=== PATIENT | male | born 1950 | race Caucasian/White ===

== ENCOUNTER 2017-02-27 13:23 | Observation (INO) | payer MEDICARE, BC, SELFPAY | END 2017-02-28 10:00 | disposition home or self-care (01) | PROVIDERS: Admitting Provider Internal Medicine Adolescent Medicine; Emergency Provider Emergency Medicine; Visit Provider Internal Medicine Adolescent Medicine | DX: R07.9 Chest pain, unspecified (principal); C34.2 Malignant neoplasm of middle lobe, bronchus or lung; E03.9 Hypothyroidism, unspecified; N39.0 Urinary tract infection, site not specified | CPT/HCPCS: 36415; 71020; 71275; 80053; 81001; 84436; 84443; 84479; 84484; 85025; 85378; 87086; 87275; 87276; 93005; 96374; 96375; 96376; 99285; G0378; Q9967 ==

== ENCOUNTER 2017-05-02 13:00 | Day surgery (SDC) | payer MEDICARE, BC, SELFPAY ==
[2017-04-28 14:11] VITALS: BMI 26.6
[2017-05-02] VITALS (7 sets, daily range): BP systolic 99–139; BP diastolic 60–83; PULSE 78–95; RESP 16–20; TEMP 36.6–36.7; O2SAT 92–97
--- NOTE | 2017-05-02 14:11 | HMH.ANESCL ---
[facility] Anesthesia Checklist - Patient Identification Patient Identification: Arm Band - Structural Data Admitted From: Home Planned Operative Procedure/s: ercp Consent for Planned Operative Procedure(s) Verified: Yes - Airway Assessment C-Spine Mobility Assessed: Yes TMJ Mobility Assessed: Yes Dentition: Poor Dentition - Neurological Assessment Level of Consciousness: Awake, Alert - Anesthesia Plan Anesthesia Risk discussed: Yes Anesthesia Plan: Verified ASA Class: III Anesthesia Type: MAC [facility] Anesthesia HX Medical History: Reports:: Cancer, Hyperlipidemia, Hypertension, Lung Disease (lobectomy/ medicated) Denies:: Diabetes Mellitus Type 1, Diabetes Mellitus Type 2, Internal Pacemaker, Seizures Other Surgeries: Yes: Appendectomy, Cardiac Catheterization (clear heart cath 10 years ago), Colon Resection, Colostomy, Other (gallbladder removal). No: Pacemaker Comment: lobectomy *Family Hx:: No significant family history
--- NOTE | 2017-05-02 14:20 | FL_ITS ---
[place] ERCP Ordering Physician: Richie Diaz MD Patient Age: 66 years: Male HISTORY: ] Quadrant pain elevated LFTs TECHNIQUE: ERCP Procedure performed by Dr. Diaz in Room 2. . 45 seconds fluoroscopy time. COMPARISON :No recent studies FINDINGS Single fluoroscopic spot image submitted . It demonstrates the endoscopy scope in place with the common duct cannulated. There is been injection of contrast outlined the common duct and its branches... No discrete filling defect this limited single view. No dilatation of common duct. It appears that a sphincterotomy performed from this image. IMPRESSION: Injection of common duct reveal No filling defects evident. A normal caliber. Sphincterotomy apparently performed by Dr. Diaz
--- NOTE | 2017-05-02 14:48 | HMH.PROC ---
[facility] Procedure Note Procedure Note:: ERCP procedure Report: Endoscopic retrograde cholangiopancreatography with extension of biliary sphincterotomy Endoscopist: Richie Diaz II, MD Referring Physician: Edgardo Carlson MD Date of Procedure: May 02, 2017 Equipment: Olympus 180 side viewing endoscope/duodenal scope Sedation: MAC sedation Indication: Mr. Harden is a 66-year-old gentleman who is here for repeat ERCP. The patient does have right upper abdominal pain/right sided abdominal pain that radiates into the back. He has some indigestion, bloating and nausea. He has had 2 prior ERCPs and 2007 and again in July 2011 with biliary sphincterotomy. Each time he had improvement of his right-sided abdominal pain. He is on a fentanyl patch daily. He also takes BuSpar. The patient has had prior subtotal colectomy. He also had stage IIIa adenocarcinoma of the lung and presumptive bone cancer. He was admitted as an inpatient to [facility] on February 2017 for abdominal pain. Procedure: Prior to the procedure, a history and physical exam was performed, and patient's medications and allergies were reviewed. The risks, benefits and alternatives of the sedation and procedure were discussed with the patient. All questions were answered and informed consent was obtained. The patient was brought to the fluoroscopic radiology room. Patient identification and proposed procedure were verified by the physician and the nurse. The patient was placed in a swimmer's position between left lateral decubitus and prone position and the scope was passed under direct vision. Throughout the procedure, the patient's blood pressure, pulse, and oxygen saturations were monitored continuously. The ERCP was accomplished without difficulty. The patient tolerated the procedure well. Findings: The scope was passed directly into the upper esophagus and advanced to the second portion of the duodenum. The esophagus and stomach were normal. There was some mild antritis/gastritis. There were superficial duodenal ulcers of the bulb and post bulbar duodenum. The ampulla was well visualized. The common bile duct was selectively cannulated. The cholangiogram showed a 4-5 mm common bile duct with normal filling of the intrahepatic biliary system. There were no filling defects. The cystic duct stump was normal. There was delayed drainage of bile and contrast. Extension of the biliary sphincterotomy was done with the sphincterotome. There was excellent drainage subsequently. The pancreatic duct was not cannulated intentionally. Impression: 1. 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 Superficial duodenal ulcer disease Plan: I am going to place the patient on misoprostol twice daily for healing of the duodenal ulcers especially since he is on aspirin. This should also help with bowel function. I would like for him to continue Reglan and Iberogast.
--- NOTE | 2017-05-02 14:53 | P.PCN_ITS ---
[facility] Procedure Note Procedure Note:: ERCP procedure Report: Endoscopic retrograde cholangiopancreatography with extension of biliary sphincterotomy Endoscopist: Richie Diaz II, MD Referring Physician: Edgardo Carlson MD Date of Procedure: May 02, 2017 Equipment: Olympus 180 side viewing endoscope/duodenal scope Sedation: MAC sedation Indication: Mr. Harden is a 66-year-old gentleman who is here for repeat ERCP. The patient does have right upper abdominal pain/right sided abdominal pain that radiates into the back. He has some indigestion, bloating and nausea. He has had 2 prior ERCPs and 2007 and again in July 2011 with biliary sphincterotomy. Each time he had improvement of his right-sided abdominal pain. He is on a fentanyl patch daily. He also takes BuSpar. The patient has had prior subtotal colectomy. He also had stage IIIa adenocarcinoma of the lung and presumptive bone cancer. He was [facility] as an [facility] for abdominal pain. Procedure: Prior to the procedure, a history and physical exam was performed, and patient' s medications and allergies were reviewed. The risks, benefits and alternatives of the sedation and procedure were discussed with the patient. All questions were answered and informed consent was obtained. The patient was brought to the fluoroscopic radiology room. Patient identification and proposed procedure were verified by the physician and the nurse. The patient was placed in a swimmer's position between left lateral decubitus and prone position and the scope was passed under direct vision. Throughout the procedure , the patient's blood pressure, pulse, and oxygen saturations were monitored continuously. The ERCP was accomplished without difficulty. The patient tolerated the procedure well. Findings: The scope was passed directly into the upper esophagus and advanced to the second portion of the duodenum. The esophagus and stomach were normal. There was some mild antritis/gastritis. There were superficial duodenal ulcers of the bulb and post bulbar duodenum. The ampulla was well visualized. The common bile duct was selectively cannulated. The cholangiogram showed a 4-5 mm common bile duct with normal filling of the intrahepatic biliary system. There were no filling defects. The cystic duct stump was normal. There was delayed drainage of bile and contrast. Extension of the biliary sphincterotomy was done with the sphincterotome. There was excellent drainage subsequently. The pancreatic duct was not cannulated intentionally. Impression: 1. 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 Superficial duodenal ulcer disease Plan: I am going to place the patient on misoprostol twice daily for healing of the duodenal ulcers especially since he is on aspirin. This should also help with bowel function. I would like for him to continue Reglan and Iberogast.
== END 2017-05-02 15:50 | disposition home or self-care (01) ==
LOC: OUTP 13:03
PROVIDERS: Family Provider Internal Medicine Hematology & Oncology; Visit Provider Internal Medicine Gastroenterology
DX: K26.9 Duodenal ulcer, unspecified as acute or chronic, without hemorrhage or perforation (principal)
CPT/HCPCS: 43260; 74330; Q9967

== ENCOUNTER → 2017-06-28 08:20 | Outpatient (CLI) | payer MEDICARE, BC, SELFPAY ==
[2017-06-28 08:15] VITALS: BP 140/79; PULSE 82; RESP 18; TEMP 36.6; O2SAT 99
== END | disposition home or self-care (01) ==
LOC: INF 08:20
PROVIDERS: Family Provider Internal Medicine Hematology & Oncology; Visit Provider Internal Medicine Hematology & Oncology
DX: C34.2 Malignant neoplasm of middle lobe, bronchus or lung (principal); Z45.2 Encounter for adjustment and management of vascular access device
CPT/HCPCS: 96523; J1642

== ENCOUNTER 2017-08-09 08:52 | Outpatient (CLI) | payer MEDICARE, BC, SELFPAY ==
[2017-08-09 08:55] VITALS: BP 131/79; PULSE 79; RESP 20; TEMP 36.7; O2SAT 96
[2017-08-09 09:10] VITALS: BP 131/79; PULSE 79; RESP 20; TEMP 36.7; O2SAT 96
== END 2017-08-09 09:10 | disposition home or self-care (01) ==
LOC: INF 08:53
PROVIDERS: Family Provider Internal Medicine Hematology & Oncology; Visit Provider Internal Medicine Hematology & Oncology
DX: C34.2 Malignant neoplasm of middle lobe, bronchus or lung (principal); Z45.2 Encounter for adjustment and management of vascular access device
CPT/HCPCS: 96523; J1642

== ENCOUNTER 2017-10-07 08:10 | Outpatient (CLI) | payer MEDICARE, BC, SELFPAY | END 2017-10-07 08:30 | disposition home or self-care (01) | LOC: INF 08:15 | PROVIDERS: Family Provider Internal Medicine Hematology & Oncology; Visit Provider Internal Medicine Hematology & Oncology | DX: Z45.2 Encounter for adjustment and management of vascular access device (principal) | CPT/HCPCS: 96523; J1642 ==

== ENCOUNTER 2017-12-21 08:32 | Outpatient (CLI) | payer MEDICARE, BC, SELFPAY ==
[2017-12-21 08:45] VITALS: BP 138/70; PULSE 75; RESP 20; TEMP 36.7; O2SAT 99
== END 2017-12-21 08:55 | disposition home or self-care (01) ==
LOC: INF 08:32
PROVIDERS: Family Provider Internal Medicine Hematology & Oncology; Visit Provider Internal Medicine Hematology & Oncology
DX: Z45.2 Encounter for adjustment and management of vascular access device (principal); C34.2 Malignant neoplasm of middle lobe, bronchus or lung
CPT/HCPCS: 96523; J1642

== ENCOUNTER 2018-02-01 08:37 | Outpatient (CLI) | payer MEDICARE, BC, SELFPAY | END 2018-02-01 08:54 | disposition home or self-care (01) | LOC: INF 08:37 | PROVIDERS: Visit Provider Internal Medicine Hematology & Oncology | DX: C34.2 Malignant neoplasm of middle lobe, bronchus or lung (principal); Z45.2 Encounter for adjustment and management of vascular access device | CPT/HCPCS: 96523; J1642 ==

== ENCOUNTER 2018-03-17 08:41 | Outpatient (CLI) | payer MEDICARE, BC, SELFPAY ==
[2018-03-17 08:50] VITALS: BP 130/78; PULSE 81; RESP 18; TEMP 36.6; O2SAT 97
== END 2018-03-17 09:00 | disposition home or self-care (01) ==
LOC: INF 08:41
PROVIDERS: Visit Provider Internal Medicine Hematology & Oncology
DX: Z45.2 Encounter for adjustment and management of vascular access device (principal); C34.2 Malignant neoplasm of middle lobe, bronchus or lung
CPT/HCPCS: 96523; J1642

== ENCOUNTER 2018-05-02 08:17 | Outpatient (CLI) | payer MEDICARE, BC, SELFPAY | END 2018-05-02 08:35 | disposition home or self-care (01) | LOC: INF 08:17 | PROVIDERS: Visit Provider Internal Medicine Hematology & Oncology | DX: C34.2 Malignant neoplasm of middle lobe, bronchus or lung (principal); Z45.2 Encounter for adjustment and management of vascular access device | CPT/HCPCS: 96523; J1642 ==

== ENCOUNTER 2018-06-20 08:12 | Outpatient (CLI) | payer MEDICARE, BC, SELFPAY ==
[2018-06-20 08:18] VITALS: BP 122/53; PULSE 74; RESP 20; TEMP 36.3; O2SAT 95
== END 2018-06-20 08:28 | disposition home or self-care (01) ==
LOC: INF 08:12
PROVIDERS: Visit Provider Internal Medicine Hematology & Oncology
DX: Z45.2 Encounter for adjustment and management of vascular access device (principal); C34.2 Malignant neoplasm of middle lobe, bronchus or lung
CPT/HCPCS: 96523; J1642

== ENCOUNTER 2018-08-02 08:15 | Outpatient (CLI) | payer MEDICARE, BC, SELFPAY ==
[2018-08-02 09:00] VITALS: BP 139/86; PULSE 78; RESP 18; TEMP 36.4; O2SAT 97
== END 2018-08-02 09:07 | disposition home or self-care (01) ==
LOC: INF 08:22
PROVIDERS: Visit Provider Internal Medicine Hematology & Oncology
DX: Z45.2 Encounter for adjustment and management of vascular access device (principal)
CPT/HCPCS: 96523; J1642

== ENCOUNTER 2018-09-12 08:12 | Outpatient (CLI) | payer MEDICARE, BC, SELFPAY ==
[2018-09-12 08:30] VITALS: BP 112/74; PULSE 68; RESP 20; TEMP 36.9
[2018-09-12 15:33] VITALS: BP 112/74; PULSE 68; RESP 20; TEMP 36.9; O2SAT 95
== END 2018-09-12 08:30 | disposition home or self-care (01) ==
LOC: INF 08:12
PROVIDERS: Visit Provider Internal Medicine Hematology & Oncology
DX: C34.2 Malignant neoplasm of middle lobe, bronchus or lung (principal); Z45.2 Encounter for adjustment and management of vascular access device
CPT/HCPCS: 96523; J1642

== ENCOUNTER 2018-10-24 08:08 | Outpatient (CLI) | payer MEDICARE, BC, SELFPAY ==
[2018-10-24 08:10] VITALS: BP 139/79; PULSE 74; RESP 18; TEMP 36.6; O2SAT 97
== END 2018-10-24 08:25 | disposition home or self-care (01) ==
LOC: INF 08:08
PROVIDERS: Visit Provider Internal Medicine Hematology & Oncology
DX: Z45.2 Encounter for adjustment and management of vascular access device (principal)
CPT/HCPCS: 96523; J1642

== ENCOUNTER 2019-01-08 08:22 | Outpatient (CLI) | payer MEDICARE, BC, SELFPAY ==
[2019-01-08 09:20] VITALS: BP 158/85; PULSE 100; RESP 20; TEMP 36.9; O2SAT 95
== END 2019-01-08 09:35 | disposition home or self-care (01) ==
LOC: INF 08:22
PROVIDERS: Visit Provider Internal Medicine Hematology & Oncology
DX: C34.2 Malignant neoplasm of middle lobe, bronchus or lung (principal); Z45.2 Encounter for adjustment and management of vascular access device
CPT/HCPCS: 96523; J1642

== ENCOUNTER 2019-02-19 08:24 | Outpatient (CLI) | payer MEDICARE, BC, SELFPAY ==
[2019-02-19 08:20] VITALS: BP 117/76; PULSE 73; RESP 18; TEMP 36.7; O2SAT 99
[2019-02-19 08:35] VITALS: BP 112/64; PULSE 78; RESP 18; TEMP 36.1; O2SAT 99
== END 2019-02-19 08:35 | disposition home or self-care (01) ==
LOC: INF 08:24
PROVIDERS: Visit Provider Internal Medicine Hematology & Oncology
DX: C34.2 Malignant neoplasm of middle lobe, bronchus or lung (principal); Z45.2 Encounter for adjustment and management of vascular access device
CPT/HCPCS: 96523; J1642

== ENCOUNTER 2019-04-04 08:23 | Outpatient (CLI) | payer MEDICARE, BC, SELFPAY | END 2019-04-04 08:32 | disposition home or self-care (01) | LOC: INF 08:23 | PROVIDERS: Visit Provider Internal Medicine Hematology & Oncology | DX: C34.2 Malignant neoplasm of middle lobe, bronchus or lung (principal); Z45.2 Encounter for adjustment and management of vascular access device | CPT/HCPCS: 96523; J1642 ==

== ENCOUNTER 2019-05-29 08:58 | Outpatient (CLI) | payer MEDICARE, BC, SELFPAY ==
[2019-05-29 09:15] VITALS: BP 140/83; PULSE 78; RESP 20; TEMP 36.8; O2SAT 98
== END 2019-05-29 09:25 | disposition home or self-care (01) ==
LOC: INF 08:58
PROVIDERS: Visit Provider Internal Medicine Hematology & Oncology
DX: C34.2 Malignant neoplasm of middle lobe, bronchus or lung (principal); Z45.2 Encounter for adjustment and management of vascular access device
CPT/HCPCS: 96523; J1642

== ENCOUNTER 2019-11-26 20:07 | Emergency (ER) | payer MEDICARE, BC, SELFPAY ==
[2019-11-26 20:20] VITALS: BP 158/102; PULSE 89; RESP 18; TEMP 36.8; O2SAT 98; BMI 28.1
--- NOTE | 2019-11-26 20:30 | HMH.EDEYEP ---
ED Disposition Clinical Impression: Bacterial conjunctivitis Disposition: Home, Self-Care Condition on Discharge: Good Instructions: DI for Conjunctivitis Additional Instructions: use meds and see your eye dr or dr ramirez at [facility] Prescriptions: cephALEXin [Keflex 500mg Cap] 500 mg PO TID #30 cap Transmission Status: Received by [id number] Referrals: Edgardo Carlson [Primary Care Provider] - - Critical Care Critical Care Time: No Attestation: On 11/26/19, the high probability of a clinically significant, sudden or life threatening deterioration of the following system(s) required my full and direct attention, intervention and personal management. The time I documented below is in addition to time spent performing reported procedures but includes the following listed in this critical care notation. Medical Decision Making - Medical Records Medical records reviewed: Yes: I reviewed the patient's medical records. - Vincent Inquiry Pt receiving controlled substance: No Vital Signs: 11/26/19 20:20 Temperature 98.3 F Temperature Source Oral Pulse Rate [Right Brachial] 89 Respiratory Rate 18 Blood Pressure [Right Arm] 158/102 H Blood Pressure Mean [Right Arm] 120 Blood Pressure Source [Right Arm] Automatic Cuff Blood Pressure Position [Right Arm] Sitting 02 Sat by Pulse Oximetry 98 Oxygen Delivery Method Room Air Orders (Tests/Meds): ED MEDICATIONS Generic Name Dose Route Start Last Admin Trade Name Freq PRN Reason Stop Dose Admin Benzonatate 100 mg 11/26/19 20:37 Tessalon Perles 100mg Capsule PO 12/26/19 20:36 TID PRN Cough Donepezil HCl mg 11/27/19 09:00 Aricept 10mg Tablet PO 12/27/19 08:59 DAILY OZZY Levothyroxine Sodium 112 mcg 11/27/19 09:00 Synthroid 112mcg (0.112mg) Tablet PO 12/27/19 08:59 DAILY OZZY Lisinopril 5 mg 11/27/19 09:00 Zestril 5mg Tablet PO 12/27/19 08:59 DAILY OZZY Non-Formulary Medication 40 mg 11/26/19 20:45 Simvastatin PO 12/26/19 20:44 QAM OZZY Non-Formulary Medication 10 mg 11/27/19 09:00 Escitalopram Oxalate PO 12/27/19 08:59 DAILY OZZY Discontinued Medications Generic Name Dose Route Start Last Admin Trade Name Freq PRN Reason Stop Dose Admin Cephalexin HCl 500 mg 11/26/19 20:30 11/26/19 20:32 Cephalexin 500mg Capsule PO 11/26/19 20:31 500 mg ONCE ONE Administration Protocol Gentamicin Sulfate 1 ml 11/26/19 20:37 Garamycin 0.3% Opth Shweta 5ml OP 11/26/19 20:38 ONCE ONE Eye Problem HPI - General Stated complaint: FB in L eye Time Seen by Provider: 11/26/19 20:30 Mode of Arrival: Ambulatory Source of Information: Patient, Medical Record Limitations: No Limitations Description of Symptoms (Recalled from ER Triage Doc. by RN): Patient reports his eyes have been irritated x2 days and then today after mowing his left eye became puffy, sore and had some drainage and his told him he needed to have it looked at. - History of Present Illness HPI Narrative: swollen lt lower lid with drainage - no visual loss and no eye pain MD chief complaint: other Onset (ago): day(s) Location: left eye Eye Symptoms: discharge Place: home Severity: moderate Treatments Prior to Arrival: none - Related Data Home Medications Medication Instructions Recorded Confirmed simvastatin 40 mg tablet 40 mg PO QAM 03/17/17 03/29/19 lisinopriL [Lisinopril 5mg Tablet] 5 mg PO DAILY 04/28/17 03/29/19 donepezil 10 mg tablet 10 mg PO DAILY 02/23/19 03/29/19 escitalopram oxalate 10 mg tablet 10 mg PO DAILY 02/23/19 03/29/19 levothyroxine 112 mcg tablet 112 mcg PO DAILY tab 03/29/19 03/29/19 Previous Rx's Medication Instructions Recorded Benzonatate [Tessalon Perle 100mg 100 mg PO TID PRN #30 cap 05/27/19 Cap*] cephALEXin [Keflex 500mg Cap] 500 mg PO TID #30 cap 11/26/19 Allergies Allergy/AdvReac Type Severity Reaction Status Judson
[2019-11-26 20:40] VITALS: BP 168/100; PULSE 78; RESP 17; TEMP 36.8; O2SAT 99
== END 2019-11-26 20:46 | disposition home or self-care (01) ==
PROVIDERS: Emergency Provider Emergency Medicine; PCP Internal Medicine
DX: H10.32 Unspecified acute conjunctivitis, left eye (principal); K21.9 Gastro-esophageal reflux disease without esophagitis; E78.5 Hyperlipidemia, unspecified; I10 Essential (primary) hypertension; F33.1 Major depressive disorder, recurrent, moderate; E03.9 Hypothyroidism, unspecified; F03.90 Unspecified dementia, unspecified severity, without behavioral disturbance, psychotic disturbance, mood disturbance, and anxiety; Z79.899 Other long term (current) drug therapy
CPT/HCPCS: 99281

== ENCOUNTER 2020-08-22 10:00 | Outpatient (RCR) | payer MEDICARE, BC, SELFPAY ==
--- NOTE | 2020-08-13 11:46 | HMH.SLDYSPHA ---
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 Pt will be seen # times/week 2 for # weeks 4 Diet Recommendations Normal Liquid Type Recommendations Normal/Thin SL Swallow Guidelines Standard Aspiration Prec. Dysphagia Swallow Precautions/Strategies Sitting Upright (90 deg),Turn Head Left,Liquids from Straw, Small Bites and Sips,Alternate Liquids/Solids Place Food on Right side of Mouth Additional Consults Recommended Physical Therapy Plan Anticipate reaching STG in # weeks 2 Anticipate reaching LTG in # weeks 4 Pt/Guardian verbally ack understanding Yes of dx/prognosis/goals G -code Required No STG-Other Comment/Non-Specific -Complete OMES to strengthen facial muscules 10xs per each exercise. - Educate patient/caregiver on diet modifications and compensatory strategies. Big Machine Consultant Goals Diet Regular with Liquids Thin Liquids Dysphagia:Food Presentation Evaluation Food Type Pureed,Mechanical Soft,Regular ,Liquid,Pudding Dysphagia Evaluation Summary Mr. Harden was given the following consistenies: thins via open cup and straw, pudding, pureed, mechanical soft, and regular. Mr. Hardne exhibited writhing head and neck motor movements when swallowing bolus. He was advised to turn his head to the weaker side (Left) by placing his chin near his shoulder to allow bolus to be pushed down the stronger side. He reported this did improve his swallowing.
== END 2020-08-22 10:05 | disposition home or self-care (01) ==
LOC: ST 10:00
PROVIDERS: PCP Internal Medicine; Visit Provider Internal Medicine
DX: G51.0 Bell's palsy (principal); R13.10 Dysphagia, unspecified
CPT/HCPCS: 92526; 92610

== ENCOUNTER 2021-06-26 09:24 | Emergency (ER) | payer MEDICARE, SELFPAY ==
[2021-06-26 09:25] VITALS: BP 140/94; PULSE 88; RESP 18; TEMP 36.8; O2SAT 97; BMI 28.0
--- NOTE | 2021-06-26 10:36 | HMH.EDUTC ---
[facility] [place] Disposition Clinical Impression: Sinusitis Qualifiers: Sinusitis location: unspecified location Chronicity: unspecified Qualified Code(s): J32.9 - Chronic sinusitis, unspecified Disposition: Home, Self-Care Condition on Discharge: Good Instructions: Sinusitis, DI for Sinusitis Additional Instructions: *Monitor Temp, Over the counter Motrin or Tylenol as directed/as needed Tylenol every 4 hours and Motrin every 6 hours (as long as your family doctor has told you that you can take it) for fever or pain. and straight to ER if unable to lower temp less than 101.0 after medication given *Warm salt water gargles may help to soothe the throat *Throat Lozenges *Warm fluids like tea with honey may help to soothe the throat *Sleep elevated *Humidifier/Vaporizer Take your medication as prescribed Follow up with your Family Doctor if no improvement or any worsening of symptoms Follow up IMMEDIATELY for new or worsening symptoms or no Noticeable improvement over the next 48-72 hours. 911 for difficulty breathing or swallowing Prescriptions: Amoxicillin/Potassium Clav [Amox-Clav 875-125 mg Tablet] 1 tab PO BID #14 tab Transmission Status: Pending to [id number] predniSONE [Deltasone 10mg tablet] 10 mg PO BID 5 Days #10 tab Transmission Status: Pending to [id number] Referrals: Edgardo Carlson [Primary Care Provider] - As needed Time of Disposition: 10:48 Medical Decision Making - Vincent Inquiry Pt receiving controlled substance: No Vincent was queried for this patient: No Vital Signs: 06/26/21 09:25 Temperature 98.2 F Temperature Source Oral Pulse Rate [Left Radial] 88 Respiratory Rate 18 Blood Pressure [Right Arm] 140/94 H Blood Pressure Mean [Right Arm] 109 Blood Pressure Source [Right Arm] Automatic Cuff Blood Pressure Position [Right Arm] Sitting 02 Sat by Pulse Oximetry 97 Oxygen Delivery Method Room Air Medical Decision Narrative: Patient state that he has taken augmentin and prednisone in the past wihtout complications or reactions [facility] HPI - General Stated complaint: sore throat, congestion, h/a, bilateral ear ache Time Seen by Provider: 06/26/21 10:36 Mode of Arrival: Ambulatory Source of Information: Patient Limitations: No Limitations Description of Symptoms (Recalled from Triage Doc. by RN): c/o ear hurting, head and sinuses pressure that started 2 days ago HEENT Symptoms (Recalled from RN notes): Yes Resp Symptoms (Recalled from RN notes): No Skin Symptoms (Recalled from RN notes): No MS Symptoms (Recalled from RN notes): No Functional Status (Recalled from RN notes): na - History of Present Illness Provider Complaint: Patient states that he has been having sinus pain and pressure for about a week or so State that for the last couple of days it has got worse and he is having pain and pressure in his ears States that today he was feeling worse and worried that it was going to move into his chest - Related Data Home Medications Medication Instructions Recorded Confirmed simvastatin 40 mg tablet 40 mg PO QAM 03/17/17 03/29/19 lisinopriL [Lisinopril 5mg Tablet] 5 mg PO DAILY 04/28/17 03/29/19 donepezil 10 mg tablet 10 mg PO DAILY 02/23/19 03/29/19 escitalopram oxalate 10 mg tablet 10 mg PO DAILY 02/23/19 03/29/19 levothyroxine 112 mcg tablet 112 mcg PO DAILY tab 03/29/19 03/29/19 Previous Rx's Medication Instructions Recorded Benzonatate [Tessalon Perle 100mg 100 mg PO TID PRN #30 cap 05/27/19 Cap*] cephALEXin [Keflex 500mg Cap] 500 mg PO TID #30 cap 11/26/19 Amoxicillin/Potassium Clav 1 tab PO BID #14 tab 06/26/21 [Amox-Clav 875-125 mg Tablet] predniSONE [Deltasone 10mg tablet] 10 mg PO BID 5 Days #10 tab 06/26/21 Allergies Allergy/AdvReac Type Severity Reaction Status Date / Time No Known Allergies Allergy Verified 03/29/19 13:33 - Worker's Comp Is this a Worker's Comp case?: No [facility] History - Hepatitis A Screen Drug use h
[2021-06-26 11:02] VITALS: BP 140/94; PULSE 88; RESP 20; TEMP 36.8; O2SAT 97
== END 2021-06-26 11:03 | disposition home or self-care (01) ==
PROVIDERS: Emergency Provider Nurse Practitioner; PCP Internal Medicine
DX: J32.9 Chronic sinusitis, unspecified (principal); J02.9 Acute pharyngitis, unspecified; K21.9 Gastro-esophageal reflux disease without esophagitis; E78.5 Hyperlipidemia, unspecified; I10 Essential (primary) hypertension; E03.9 Hypothyroidism, unspecified; F33.1 Major depressive disorder, recurrent, moderate; Z79.899 Other long term (current) drug therapy
CPT/HCPCS: 99212; G0463

== ENCOUNTER 2021-09-08 10:51 | Emergency (ER) | payer MEDICARE, SELFPAY ==
[2021-09-08 11:05] VITALS: BP 187/82; PULSE 102; RESP 24; TEMP 36.6; O2SAT 98; BMI 27.2
--- NOTE | 2021-09-08 11:24 | HMH.EDUTC ---
[facility] [place] Clinical Impression: Dizziness, Vertigo, benign positional Disposition: Home, Self-Care Condition on Discharge: Fair Instructions: Vertigo Additional Instructions: Follow-up with your primary care doctor if you do not improve in the next few days. Return to the emergency department if you feel worse in any way. Prescriptions: Meclizine HCl [Meclizine 25mg Tab] 25 mg PO TID PRN #21 tab PRN Reason: Dizziness Transmission Status: Received by [facility] #[id number] Referrals: Tani Hernandez MD [Primary Care Provider] - Medical Decision Making - Vincent Inquiry Pt receiving controlled substance: No Vincent was queried for this patient: No Vital Signs: 09/08/21 11:05 09/08/21 11:25 09/08/21 13:06 Temperature 97.9 F 98.4 F Temperature Source Oral Oral Pulse Rate Pulse Rate [Left Brachial] 102 H 82 74 Respiratory Rate 24 18 16 Blood Pressure Blood Pressure [Left Arm] 187/82 H 143/91 H 120/71 Blood Pressure Mean [Left Arm] 117 108 87 Blood Pressure Source Blood Pressure Source [Left Arm] Automatic Cuff Automatic Cuff Blood Pressure Position Blood Pressure Position [Left Arm] Sitting Sitting 02 Sat by Pulse Oximetry 98 99 98 Oxygen Delivery Method Room Air Room Air 09/08/21 13:10 Temperature 98.2 F Temperature Source Oral Pulse Rate 71 Pulse Rate [Left Brachial] Respiratory Rate 16 Blood Pressure 120/71 Blood Pressure [Left Arm] Blood Pressure Mean [Left Arm] Blood Pressure Source Automatic Cuff Blood Pressure Source [Left Arm] Blood Pressure Position Sitting Blood Pressure Position [Left Arm] 02 Sat by Pulse Oximetry Oxygen Delivery Method Room Air Orders (Tests/Meds): ED MEDICATIONS Discontinued Medications Generic Name Dose Route Start Last Admin Trade Name Freq PRN Reason Stop Dose Admin Meclizine HCl 25 mg 09/08/21 11:35 09/08/21 11:59 Meclizine 25mg Tablet PO 09/08/21 11:36 25 mg ONCE ONE Administration Medical Decision Narrative: Patient reports history of 3 cancers Dizziness, blurred vision and headache for 2 weeks that has continued to get worse and patient was staggering and almost fell in room feeling like everything is spinning and blood pressure elevated in UTC and patient denies HTN due to symptoms and blurred vision recommended transfer to the ED for further work up and evaluation and patient agreed Called ED spoke with Millie and patient was moved to room 7 via wheelchair [facility] [place] HPI - General Stated complaint: dizziness Time Seen by Provider: 09/08/21 11:10 Mode of Arrival: Ambulatory Source of Information: Patient Limitations: No Limitations Description of Symptoms (Recalled from Triage Doc. by RN): PATIENT C/O SOA, DIZZINESS, HEADACHE, BLURRED VISION, AND CHEST TIGHTNESS WITH BREATHING X 2 WEEKS HEENT Symptoms (Recalled from RN notes): Yes Resp Symptoms (Recalled from RN notes): Yes Skin Symptoms (Recalled from RN notes): No MS Symptoms (Recalled from RN notes): No Functional Status (Recalled from RN notes): WNL - History of Present Illness Provider Complaint: Patient states that he started about 2 weeks ago with headache, dizziness and blurred vision State that it has continued to get worse despite him taking several over the counter medications, States that he has had a few episodes of his chest feeling tight and feeling SOA with breathing States that his headache is a little better today but still feels like everything is spinning and having blurred vision. State that his vision was so blurry he was unable to fill out papers in the [facility] - Related Data Home Medications Medication Instructions Recorded Confirmed simvastatin 40 mg tablet 40 mg PO QAM 03/17/17 03/29/19 lisinopriL [Lisinopril 5mg Tablet] 5 mg PO DAILY 04/28/17 03/29/19 donepezil 10 mg tablet 10 mg PO DAILY 02/23/19 03/29/19 escitalopram oxalate 10 mg tablet 10 mg PO DAILY 02/23/19 03/29/19 levothyroxine 112 mcg tablet 112 mcg PO DAILY tab
[2021-09-08 11:25] VITALS: BP 143/91; PULSE 82; RESP 18; TEMP 36.9; O2SAT 99; BMI 28.0
--- NOTE | 2021-09-08 11:25 | PC.NURSE ---
PATIENT SENT TO ER PER Ty GONZALEZ APRN FOR FURTHER EVALUATION. REPORT GIVEN TO Chuy HARVEY RN BY Ty GONZALEZ APRN
--- NOTE | 2021-09-08 11:31 | HMH.EDDIZZ ---
ED Disposition Clinical Impression: Dizziness Vertigo, benign positional Qualifiers: Laterality: unspecified laterality Qualified Code(s): H81.10 - Benign paroxysmal vertigo, unspecified ear Disposition: Home, Self-Care Condition on Discharge: Fair Instructions: Vertigo Additional Instructions: Follow-up with your primary care doctor if you do not improve in the next few days. Return to the emergency department if you feel worse in any way. Prescriptions: Meclizine HCl [Meclizine 25mg Tab] 25 mg PO TID PRN #21 tab PRN Reason: Dizziness Transmission Status: Pending to [id number] Referrals: Tani Hernandez MD [Primary Care Provider] - - Critical Care Critical Care Time: No Attestation: On 09/08/21, the high probability of a clinically significant, sudden or life threatening deterioration of the following system(s) required my full and direct attention, intervention and personal management. The time I documented below is in addition to time spent performing reported procedures but includes the following listed in this critical care notation. Medical Decision Making - Vincent Inquiry Pt receiving controlled substance: No Vital Signs: 09/08/21 11:05 09/08/21 11:25 Temperature 97.9 F 98.4 F Temperature Source Oral Oral Pulse Rate [Left Brachial] 102 H 82 Respiratory Rate 24 18 Blood Pressure [Left Arm] 187/82 H 143/91 H Blood Pressure Mean [Left Arm] 117 108 Blood Pressure Source [Left Arm] Automatic Cuff Blood Pressure Position [Left Arm] Sitting 02 Sat by Pulse Oximetry 98 99 Oxygen Delivery Method Room Air Orders (Tests/Meds): ED MEDICATIONS Discontinued Medications Generic Name Dose Route Start Last Admin Trade Name Prateekq PRN Reason Stop Dose Admin Meclizine HCl 25 mg 09/08/21 11:35 09/08/21 11:59 Meclizine 25mg Tablet PO 09/08/21 11:36 25 mg ONCE ONE Administration - CT Data CT Scan: Head Time Received: 12:[address] Reviewed: Yes: I have reviewed the patient's CT results Preliminary Findings: Normal/NAD Medical Decision Narrative: The patient presents to the emergency department complaining of symptoms consistent with benign positional vertigo. However, the patient has had numerous different malignancies in the past. Therefore a CT of the head was performed. No acute abnormalities were seen. Meanwhile the patient was given meclizine in the emergency department which significantly improved his symptoms. I feel that the patient is stable enough to be discharged home on meclizine. The patient's neurologic exam was normal in the emergency department. Dizzy HPI - General Stated Complaint: dizziness Time Seen by Provider: 09/08/21 11:32 Mode of Arrival: Ambulatory Source of Information: Patient Limitations: No Limitations Description of Symptoms (Recalled from ER Triage Doc. by RN): PATIENT C/O SOA, DIZZINESS, HEADACHE, BLURRED VISION, AND CHEST TIGHTNESS WITH BREATHING X 2 WEEKS - History of Present Illness HPI Narrative: The patient presents to the urgent treatment care center complaining of a 2-week history of vertigo. He states that it is worse when he moves or changes position. He has a long history of multiple cancers. His last cancer treatment was about 4 years ago. He is not currently on active chemotherapy. He denies headache. But he complains of some warm feeling in his head and when he gets dizzy. - Related Data Home Medications Medication Instructions Recorded Confirmed simvastatin 40 mg tablet 40 mg PO QAM 03/17/17 03/29/19 lisinopriL [Lisinopril 5mg Tablet] 5 mg PO DAILY 04/28/17 03/29/19 donepezil 10 mg tablet 10 mg PO DAILY 02/23/19 03/29/19 escitalopram oxalate 10 mg tablet 10 mg PO DAILY 02/23/19 03/29/19 levothyroxine 112 mcg tablet 112 mcg PO DAILY tab 03/29/19 03/29/19 Previous Rx's Medication Instructions Recorded Benzonatate [Tessalon Perle 100mg 100 mg PO TID PRN #30 cap 05/27/19 Cap*] cephALEXin [Keflex 5
--- NOTE | 2021-09-08 11:34 | CT_ITS ---
FINAL REPORT CLINICAL HISTORY: Vertigo, pt states that he has been dizzy for the last 2 weeks. FINDINGS: Axial images of the head were obtained without contrast. Coronal reformatted images were also obtained.This study was performed with techniques to keep radiation doses as low as reasonably achievable (ALARA). Individualized dose reduction techniques using automated exposure control or adjustment of mA and/or kV according to the patient's size were employed. There is no evidence of intracranial hemorrhage or mass. The ventricular size is within normal limits. There is no evidence of shift of the midline structures. No abnormal extra axial fluid collection is identified. No skull abnormality is seen on the bone window images. IMPRESSION: No acute intracranial abnormality. Reviewed, Interpreted and Dictated by Nikolas Kumar III, MD Transcribed by Seth Farris Authenticated and [facility]
--- NOTE | 2021-09-08 12:56 | PC.NURSE ---
Rounded on pt at this time. Updated on plan of care. No new needs.
[2021-09-08 13:06] VITALS: BP 120/71; PULSE 74; RESP 16; O2SAT 98
[2021-09-08 13:10] VITALS: BP 120/71; PULSE 71; RESP 16; TEMP 36.8; O2SAT 98
== END 2021-09-08 13:11 | disposition home or self-care (01) ==
LOC: UTC 10:56 → ER 11:28
PROVIDERS: Emergency Provider Nurse Practitioner; PCP Internal Medicine Adolescent Medicine
DX: H81.10 Benign paroxysmal vertigo, unspecified ear (principal); Z85.038 Personal history of other malignant neoplasm of large intestine; Z85.118 Personal history of other malignant neoplasm of bronchus and lung; Z85.830 Personal history of malignant neoplasm of bone; F03.90 Unspecified dementia, unspecified severity, without behavioral disturbance, psychotic disturbance, mood disturbance, and anxiety; F32.A Depression, unspecified; K21.9 Gastro-esophageal reflux disease without esophagitis; E78.5 Hyperlipidemia, unspecified; I10 Essential (primary) hypertension; J98.4 Other disorders of lung; E03.9 Hypothyroidism, unspecified; Z90.49 Acquired absence of other specified parts of digestive tract
CPT/HCPCS: 70450; 99284

== ENCOUNTER 2022-02-09 16:29 | Emergency (ER) | payer MEDICARE, SELFPAY ==
[2022-02-09 17:55] VITALS: BP 151/85; PULSE 99; RESP 22; TEMP 36.9; O2SAT 97; BMI 26.6
--- NOTE | 2022-02-09 18:40 | EXP.UTC ---
Discharge Plan Disposition Patient Disposition: Home, Self-Care Condition: Good Prescriptions Prescriptions: New valacyclovir 1 gram tablet 1,000 mg PO Q8H 7 Days Qty: 21 0RF No Action donepezil 10 mg tablet 10 mg PO DAILY Label Comments: TAKE 1 TABLET BY MOUTH ONCE DAILY escitalopram oxalate 10 mg tablet 10 mg PO DAILY Label Comments: TAKE 1 TABLET BY MOUTH ONCE DAILY levothyroxine 112 mcg tablet 112 mcg PO DAILY Label Comments: TAKE 1 TABLET BY MOUTH ONCE DAILY simvastatin 40 mg tablet 40 mg PO QAM benzonatate 100 MG capsule 100 mg PO TID PRN (Reason: Cough) Qty: 30 0RF cephalexin 500 MG capsule 500 mg PO TID Qty: 30 0RF meclizine 25 MG tablet,chewable 25 mg PO TID PRN (Reason: Dizziness) Qty: 21 0RF lisinopril 5 MG tablet 5 mg PO DAILY prednisone 10 MG tablet 10 mg PO BID 5 Days Qty: 10 0RF amoxicillin-pot clavulanate 1 EACH tablet 1 tab PO BID Qty: 14 0RF Referrals Follow up/Referrals: Tani Hernandez MD [Primary Care Provider] - See instructions Activity Restrictions/Add. Instructions Additional Instructions/Restrictions: Take your medicines exactly as prescribed.. Antiviral medicine helps you get better faster and may help prevent later problems. Try not to scratch or pick at the blisters. They will crust over and fall off on their own if you leave them alone. Put cool, wet cloths on the area to relieve pain and itching. You can also use calamine lotion. Try not to use so much lotion that it cakes and is hard to get off. Take an [id number] pain medicine, such as acetaminophen (Tylenol), ibuprofen (Advil, Motrin), or naproxen (Aleve). Read and follow all instructions on the label. Avoid close contact with people until the blisters have healed. It is very important for you to avoid contact with anyone who has never had chickenpox or the chickenpox vaccine. Young babies and anyone who is or has a hard time fighting infection (such as someone with HIV, diabetes, or cancer) is especially at risk. FOllow up with your Family Doctor if no improvement or any worsening of symptoms Clinical Impressions Clinical Impression: Shingles Instructions Patient Instructions: Shingles, DI for Shingles, Valacyclovir Discharge ED Provider: Shonda Glover [facility] [place] General Stated complaint: possible shingles Mode of Arrival: Ambulatory Source of Information: Patient Limitations: No Limitations Time Seen by Provider: 02/09/22 18:41 Description of Symptoms (Recalled from Triage Doc. by RN): PATIENT C/O BURNING RASH TO LEFT SIDE OF CHEST X 1 WEEK HEENT Symptoms (Recalled from RN notes): No Resp Symptoms (Recalled from RN notes): No Skin Symptoms (Recalled from RN notes): Yes MS Symptoms (Recalled from RN notes): No Functional Status (Recalled from RN notes): WNL History of Present Illness Provider Complaint: Patient states that he had burning like sensation in his left shoulder blade area for about 3 days then he broke out in rash on his left side States that he thinks he has shingles States that it castillo and tender when he touches it States that feels like it did with shingles Related Data Home Medications Medication Instructions Recorded Confirmed simvastatin 40 mg tablet 40 mg PO QAM Cholesterol 03/17/17 03/29/19 lisinopril 5 mg tablet 5 mg PO DAILY blood pressure 04/28/17 03/29/19 donepezil 10 mg tablet 10 mg PO DAILY bp 02/23/19 03/29/19 escitalopram oxalate 10 mg tablet 10 mg PO DAILY bp 02/23/19 03/29/19 levothyroxine 112 mcg tablet 112 mcg PO DAILY thyroind 03/29/19 03/29/19 Previous Rx's Medication Instructions Recorded benzonatate 100 mg capsule 100 mg PO TID PRN Cough #30 caps 05/27/19 cephalexin 500 mg capsule 500 mg PO TID #30 caps 11/26/19 amoxicillin 875 mg-potassium 1 tab PO BID #14 tabs 06/26/21 clavulanate 125 mg tablet prednisone 10 mg tablet 10 mg PO BID 5 days #10 tabs 06/26/21 abel
[2022-02-09 18:47] VITALS: BP 151/85; PULSE 99; RESP 22; TEMP 36.9; O2SAT 97
== END 2022-02-09 18:55 | disposition home or self-care (01) ==
PROVIDERS: Emergency Provider Nurse Practitioner; PCP Internal Medicine Adolescent Medicine
DX: B02.9 Zoster without complications (principal); I10 Essential (primary) hypertension; Z79.52 Long term (current) use of systemic steroids; Z79.899 Other long term (current) drug therapy; R42 Dizziness and giddiness
CPT/HCPCS: 99213; G0463

== ENCOUNTER 2023-10-31 14:54 | Emergency (ER) | payer MEDICARE, SELFPAY ==
[2023-10-31 14:55] VITALS: BP 135/78; PULSE 80; RESP 18; TEMP 36.7; O2SAT 98; BMI 26.6
--- NOTE | 2023-10-31 14:59 | HMH.EDGENADL ---
Discharge Plan Disposition Patient Disposition: Home, Self-Care Condition: Good Prescriptions Prescriptions: New amoxicillin-pot clavulanate 875-125 mg tablet 1 tab PO BID Qty: 20 0RF No Action donepezil 10 mg tablet 10 mg PO DAILY Patient Comments: TAKE 1 TABLET BY MOUTH ONCE DAILY escitalopram oxalate 10 mg tablet 10 mg PO DAILY Patient Comments: TAKE 1 TABLET BY MOUTH ONCE DAILY levothyroxine 112 mcg tablet 112 mcg PO DAILY Patient Comments: TAKE 1 TABLET BY MOUTH ONCE DAILY simvastatin 40 mg tablet 40 mg PO QAM benzonatate 100 MG capsule 100 mg PO TID PRN (Reason: Cough) Qty: 30 0RF cephalexin 500 MG capsule 500 mg PO TID Qty: 30 0RF meclizine 25 MG tablet,chewable 25 mg PO TID PRN (Reason: Dizziness) Qty: 21 0RF valacyclovir 1 gram tablet 1,000 mg PO Q8H 7 Days Qty: 21 0RF lisinopril 5 MG tablet 5 mg PO DAILY prednisone 10 MG tablet 10 mg PO BID 5 Days Qty: 10 0RF amoxicillin-pot clavulanate 1 EACH tablet 1 tab PO BID Qty: 14 0RF Referrals Follow up/Referrals: Edgardo Carlson [Primary Care Provider] - See instructions Activity Restrictions/Add. Instructions Additional Instructions/Restrictions: Keep wound clean dry and covered with a nonocclusive dressing. You may wash with soap and water. Your sutures need to come out in 10 days and you may return to the [facility] PCP or ER at your leisure. Return for any increasing redness swelling pain drainage. Clinical Impressions Clinical Impression: Dog bite Instructions Patient Instructions: DI for Laceration Repair, DI for Dog Bite Print Language Print Language: Bolivian Discharge ED Provider: Hayden Crouch General Adult HPI General Stated complaint: bit by dog R wrist Time Seen by Provider: 10/31/23 14:59 History of Present Illness HPI narrative: Patient presents for evaluation of a dog bite to his right hand. Patient was bit by his son-in-law's mother's dog. He suffered a small skin tear/laceration to the dorsum of his right wrist. The dog is fully vaccinated and is up-to-date on all of his shots. Related Data Home Medications ?Medication ?Instructions ?Recorded ?Confirmed simvastatin 40 mg tablet 40 mg PO QAM Cholesterol 03/17/17 03/29/19 lisinopril 5 mg tablet 5 mg PO DAILY blood pressure 04/28/17 03/29/19 donepezil 10 mg tablet 10 mg PO DAILY bp 02/23/19 03/29/19 escitalopram oxalate 10 mg tablet 10 mg PO DAILY bp 02/23/19 03/29/19 levothyroxine 112 mcg tablet 112 mcg PO DAILY thyroind 03/29/19 03/29/19 Previous Rx's ?Medication ?Instructions ?Recorded benzonatate 100 mg capsule 100 mg PO TID PRN Cough #30 caps 05/27/19 cephalexin 500 mg capsule 500 mg PO TID #30 caps 11/26/19 amoxicillin 875 mg-potassium 1 tab PO BID #14 tabs 06/26/21 clavulanate 125 mg tablet prednisone 10 mg tablet 10 mg PO BID 5 days #10 tabs 06/26/21 meclizine 25 mg chewable tablet 25 mg PO TID PRN Dizziness #21 tabs 09/08/21 valacyclovir 1 gram tablet 1,000 mg PO Q8H 7 days #21 tabs 02/09/22 amoxicillin 875 mg-potassium 1 tab PO BID #20 tabs 10/31/23 clavulanate 125 mg tablet Allergies Allergy/AdvReac Type Severity Reaction Status Date / Time No Known Allergies Allergy Verified 03/29/19 13:33 [facility] Disclaimer: The information contained in this section may have been updated after the patient was seen, as this information can be updated by other users. Medical History (Updated 10/31/23 @ 15:37 by DEON Rubio) Cancer Hypertension Social History (Updated 02/09/22 @ 18:11 by Danyelle Brown RN) Smoking Status: Never smoker second hand exposure: No alcohol intake: never current occupational status: retired Travel in the last 8 weeks: None household members: spouse housing: house current occupational exposures/hazards: No ROS Obtained: Yes Systems reviewed as appropriate & no additional complaints except as docum
--- NOTE | 2023-10-31 15:12 | PC.NURSE ---
rounded on patient, no needs at this time
[2023-10-31 15:55] VITALS: BP 135/84; PULSE 82; RESP 16; TEMP 36.7; O2SAT 98
== END 2023-10-31 15:56 | disposition home or self-care (01) ==
PROVIDERS: Emergency Provider Emergency Medicine; PCP Internal Medicine
DX: S61.551A Open bite of right wrist, initial encounter (principal); W54.0XXA Bitten by dog, initial encounter; Z23 Encounter for immunization
CPT/HCPCS: 12002; 90471; 90715; 99283

== ENCOUNTER 2024-04-12 14:11 | Observation (INO) | payer MEDICARE, SELFPAY ==
[2024-04-12 14:12] VITALS: BP 155/104; PULSE 121; RESP 18; TEMP 36.6; O2SAT 98; BMI 27.3
--- NOTE | 2024-04-12 14:14 | ECG_ITS ---
APPROVED REPORT Exam: Resting ECG HR:114 bpm ECG Measurements Heart Rate 114 AXES NE 193 P 68 QRSd 73 QRS 70 QT 348 T 57 QTc 415 Conclusion SINUS TACHYCARDIA NONSPECIFIC ST & T-WAVE ABNORMALITY ABNORMAL RHYTHM ECG UNCONFIRMED REPORT Electronically signed by : VONNIE SANDOVAL, 04/13/2024 06:51:46
[2024-04-12 14:18] VITALS: BP 150/102; PULSE 111; RESP 15; O2SAT 99
--- NOTE | 2024-04-12 14:23 | PC.NURSE ---
wants stroke protocol emergent. Radiology aware
--- NOTE | 2024-04-12 14:25 | CT_ITS ---
FINAL REPORT TECHNIQUE: NASCET technique utilized for stenosis evaluation. Coronal and sagittal images were obtained and reviewed. This study was performed with techniques to keep radiation doses as low as reasonably achievable, (ALARA). Individualized dose reduction techniques using automated exposure control or adjustment of mA and/or kV according to the patient's size were employed. CLINICAL HISTORY: possible stroke COMPARISON: None FINDINGS: RIGHT CAROTID: There is moderate calcification of the proximal right internal carotid artery. On the axial images, stenosis measures about 50%. LEFT CAROTID: No significant stenosis seen of the cervical common or internal carotid artery. VERTEBRALS: The vertebrals are patent. The left vertebral artery is dominant. No significant stenosis is present. IMPRESSION: No significant arterial abnormality. Reviewed, Interpreted and Dictated by Dimitri Tomas MD Transcribed by Willa Castro Authenticated and [facility]
--- NOTE | 2024-04-12 14:25 | CT_ITS ---
FINAL REPORT TECHNIQUE: Axial CT images were performed through the head. Coronal reformatted images were submitted. This study was performed with techniques to keep radiation doses as low as reasonably achievable (ALARA). Individualized dose reduction techniques using automated exposure control or adjustment of mA and/or kV according to the patient's size were employed. CLINICAL HISTORY: stroke protocol COMPARISON: 09/08/2021 FINDINGS: The ventricles are normal in size for patient's age. There is mild atrophy. There is no evidence of hemorrhage. There is no mass or edema identified. There is no abnormal extra-axial fluid seen. The paranasal sinuses are well aerated. IMPRESSION: No acute intracranial process. Reviewed, Interpreted and Dictated by Dimitri Tomas MD Transcribed by Willa Castro Authenticated and [facility]
--- NOTE | 2024-04-12 14:25 | CT_ITS ---
FINAL REPORT TECHNIQUE: thin section axial CT with and without IV contrast supplemented with multiplanar 3-D reconstruction of the head. This study was performed with techniques to keep radiation doses as low as reasonably achievable, (ALARA)individualized dose reduction techniques using automated exposure control or adjustment of mA and/or kV according to the patient's size were employed. CLINICAL HISTORY: possible stroke COMPARISON: None FINDINGS: CTA: The cranial circulation is unremarkable. There is no significant stenosis, aneurysm or occlusion. IMPRESSION: No acute process. Reviewed, Interpreted and Dictated by Dimitri Tomas MD Transcribed by Willa Castro Authenticated and [facility]
--- NOTE | 2024-04-12 14:25 | CT_ITS ---
FINAL REPORT TECHNIQUE: The patient was injected with IV contrast. Axial images were obtained through the chest in a PE protocol. 3-D reconstruction images were also performed. Individualized dose reduction techniques using automated exposure control or adjustment of the MA and/or KV according to patient's size were employed. CLINICAL HISTORY: cp, tachy FINDINGS: Mediastinal vasculature is adequately opacified. No pulmonary artery filling defects are identified to suggest PE. There is no aortic dissection. There is no axillary adenopathy. There is no hilar or mediastinal adenopathy. The heart size is normal. There is no pericardial or pleural effusion. Limited images of the upper abdomen are unremarkable. There is linear scarring in both lungs. There is an ill-defined nodular area in the periphery of the right upper lobe measuring 8 mm. Finding is well-seen on image 44 of series 9. IMPRESSION: No pulmonary embolus or dissection. Ill-defined nodular area in the right upper lobe. Recommend follow-up in 6 months as per Indu criteria Reviewed, Interpreted and Dictated by Dimitri Tomas MD Transcribed by Merle Ramírez Authenticated and [facility]
[2024-04-12] MEDS: SODIUM CHLORIDE 0.9% 10ML SYR (RAD ONLY) 10 ML IV ×2 (14:31→14:39)
[2024-04-12] MEDS: IOPAMIDOL-370 (76%);100ML BOTTLE 80 ML IV (14:31)
[2024-04-12] MEDS: 0.9 % SODIUM CHLORIDE 50 ML VIAL IV (14:31)
[2024-04-12 14:34] LABS: Basophils % 0.4 % (0.1-2.0); Eosinophils % 0.4 % (0.1-12.0); Lymphocytes % 36.6 % (10-50); Mean Corpuscular HGB Conc 34.1 g/dL (31.8-35.4); Mean Corpuscular Hemoglobin 31.2 pg (27.0-31.2); Mean Corpuscular Volume 91.3 fl (80-94); Mean Platelet Volume 9.8 fl (7.4-10.4); Monocytes # 0.6 K/mm3 (0.1-1.0); Monocytes % 7.2 % (1.7-9.3); Neutrophils # 4.5 K/mm3 (1.8-7.8); Neutrophils % 55.2 % (37.0-80.0); Platelet Count 175 K/mm3 (142-424); Red Blood Count 4.49 M/mm3 (4.60-6.20); Red Cell Distribution Width 12.3 % (11.5-17.5); White Blood Count 8.1 K/mm3 (4.8-10.8)
[2024-04-12 14:38] LABS: Albumin Level 4.8 g/dl (3.5-5.0); Chloride 104 mmol/L (98-107); Potassium 3.8 mmoL/L (3.5-5.1); Sodium 137 mmol/L (136-145)
[2024-04-12] MEDS: IOPAMIDOL-370 (76%);100ML BOTTLE 70 ML IV (14:39)
[2024-04-12 14:41] LABS: Alanine Aminotransferase 33 U/L (12-78); Alkaline Phosphatase 111 U/L (38-126); Anion Gap 13.8 mEq/L (5-15); Aspartate Amino Transferase 45 U/L (17-59); Bilirubin,Total 0.4 mg/dl (0.2-1.3); Blood Urea Nitrogen 23 mg/dl (9-20); Calcium 9.4 mg/dl (8.4-10.2); Carbon Dioxide 23 mmol/L (22.0-30.0); Cholesterol 214 mg/dl (140-200); Creatinine Clearance Estimated 77 mL/min (50-200); Estimated Glomerular Filt Rate 94 ml/min (>60); GFR (African American) 114 ML/MIN (>60); Globulin 2.4 g/dL (1.3-3.2); Glucose 151 mg/dl (74-100); Total Protein,Serum 7.2 g/dl (6.3-8.2); Triglycerides 373 mg/dl (30-150); VLDL Cholesterol 75 mg/dL (0-40)
[2024-04-12] MEDS: ONDANSETRON 4MG/2ML VIAL 4 MG IV (14:41)
[2024-04-12] MEDS: ACETAMINOPHEN 500MG TAB 1000 MG PO (14:41)
--- NOTE | 2024-04-12 14:41 | PC.NURSE ---
PT ARRIVED BACK TO ROOM FROM CT
[2024-04-12 14:42] LABS: Chol/HDL Ratio 2.5 (1-3.5); HDL Cholesterol 84 mg/dl (40-60)
[2024-04-12] MEDS: LACTATED RINGERS 1000ML 1,000 ML 999 ML IV (14:42)
[2024-04-12 14:44] LABS: Activated Partial Thrombo Time 31.5 seconds (22.5-28.5); INR 0.94 (0.9-1.1); Prothrombin Time 10.4 seconds (9.2-12.1)
[2024-04-12 14:45] LABS: Ethyl Alcohol < 10 mg/dl (0-10)
[2024-04-12 14:52] LABS: Direct LDL Cholesterol 63.49 mg/dL (100-129)
[2024-04-12 14:52] LABS: Coronavirus 19, PCR Not Detected (NotDetected); Influenza A, PCR Not Detected (NotDetected); Influenza B, PCR Not Detected (NotDetected)
--- NOTE | 2024-04-12 14:55 | HMH.EDGENADL ---
Discharge Plan Disposition Patient Disposition: Admitted Condition: Fair Prescriptions Prescriptions: No Action donepezil 10 mg tablet 10 mg PO DAILY Patient Comments: TAKE 1 TABLET BY MOUTH ONCE DAILY escitalopram oxalate 10 mg tablet 10 mg PO DAILY Patient Comments: TAKE 1 TABLET BY MOUTH ONCE DAILY levothyroxine 112 mcg tablet 112 mcg PO DAILY Patient Comments: TAKE 1 TABLET BY MOUTH ONCE DAILY simvastatin 40 mg tablet 40 mg PO QAM lisinopril 5 MG tablet 5 mg PO DAILY prednisone 10 MG tablet 10 mg PO BID 5 Days Qty: 10 0RF Referrals Follow up/Referrals: Gianluca Carlson MD [Primary Care Provider] - See instructions Clinical Impressions Clinical Impression: TIA (transient ischemic attack) Print Language Print Language: Croatian Discharge ED Provider: Darian Claudio Adult HPI General Chief complaint: Neuro Symptoms/Deficit Stated complaint: STROKE SYMPTOMS Time Seen by Provider: 04/12/24 14:25 Mode of Arrival: Ambulatory Source of Information: Patient Limitations: No Limitations Description of Symptoms (Recalled from ER Triage Doc. by RN): Patient reports that he has been feeling weak for a couple of days. Complaint of numbness all over and a headache. Reports that at 6am he began to have double vision. History of Present Illness HPI narrative: Patient is a 73-year-old male with a complex medical history including colon cancer s/p resection, stroke in the past with no residual deficits, COPD not on any oxygen. Patient presents today for diplopia, intermittent numbness and weakness. He reports that over the last 3 days, he has had intermittent left-sided facial numbness and right leg weakness, but he has not had any falls or trauma. Endorsed a headache this morning that resolved on its own. This morning around 6 AM, he noticed that while driving he began to have diplopia, seeing 2 of everything. Has never had this happen before. He reports that he is having no curtain like sensation across his vision or dark spots in his vision. Denies feeling significantly dizzy. He reports that his facial numbness and weakness in his leg has improved, but persistent diplopia. He also is reporting some anterior chest pain that comes and goes over the last 3 days, not associated with exertion. Concomitantly shortness of breath. Related Data Home Medications ?Medication ?Instructions ?Recorded ?Confirmed simvastatin 40 mg tablet 40 mg PO QAM Cholesterol 03/17/17 04/12/24 lisinopril 5 mg tablet 5 mg PO DAILY blood pressure 04/28/17 04/12/24 donepezil 10 mg tablet 10 mg PO DAILY bp 02/23/19 04/12/24 escitalopram oxalate 10 mg tablet 10 mg PO DAILY bp 02/23/19 04/12/24 levothyroxine 112 mcg tablet 112 mcg PO DAILY thyroind 03/29/19 04/12/24 Previous Rx's ?Medication ?Instructions ?Recorded prednisone 10 mg tablet 10 mg PO BID 5 days #10 tabs 06/26/21 Allergies Allergy/AdvReac Type Severity Reaction Status Date / Time No Known Allergies Allergy Verified 03/29/19 13:33 [facility] Disclaimer: The information contained in this section may have been updated after the patient was seen, as this information can be updated by other users. Medical History (Updated 04/12/24 @ 16:01 by Jewell Collins RN) Cancer Hypertension Social History (Updated 02/09/22 @ 18:11 by Danyelle Brown RN) Smoking Status: Never smoker second hand exposure: No alcohol intake: never current occupational status: retired Travel in the last 8 weeks: None household members: spouse housing: house current occupational exposures/hazards: No Have you lived/traveled outside [place] in past 30 days?: No Contact w/someone who lives/traveled outside US past 30 days?: No Exposure to someone with infectious disease in past 14 days?: No Do you have a fever (greater than 100.4 F or 38 C)?: No Have you tested positive for COVID-19: No Exposed to someone with COVID-19 in past 14 days?: No Do you have a sore throat?: No Do you have a cough?: No Do you have any weakness?: No Do you have any diarrhea?: No Are you experiencing any unusual bleeding?: No Do you have any muscle aches/pain?: No Do you have any abdominal pain?: No Are you experiencing loss of taste or smell?: No Other Medical History Have you received the Flu Vaccine for this season: Yes Have you received the Pneumonia Vaccine: No ROS Obtained: Yes All systems reviewed & no additional complaints except as documented Physical Exam General General appearance: alert and in no apparent distress Head Head exam: atraumatic and normocephalic Eye Eye exam: Present PERRL and EOMI ENT ENT exam: Present normal oropharynx Neck Neck exam: Present full ROM and trachea midline Chest Chest inspection: Present symmetric chest wall rise Respiratory Respiratory exam: Present normal lung sounds bilaterally; Absent stridor Cardiovascular Cardiovascular exam: Present regular rate and normal rhythm Abdominal Exam Abdominal exam: Present soft; Absent distention or tenderness Extremities Exam Extremities exam: Present full ROM Neurological Exam Neurological exam: Present alert, oriented X3 and CN II-XII intact (Bilateral hemianopsia on the right lower quadrant, no nystagmus. Diplopia); Absent motor sensory deficit Psychiatric Psychiatric exam: Present normal mood Skin Skin exam: Present warm and dry Medical Decision Making Medical Records Screening: Per USPSTF and CDC recommendations, given the prevalence of disease in our region, it is our hospital?s policy to screen for HIV and viral Hepatitis for all patients aged 18 and over and those with ongoing risk factors. Vincent Inquiry Pt receiving controlled substance: No Vital Signs: 04/12/24 14:12 04/12/24 14:18 04/12/24 15:00 Temperature 97.9 F Temperature Source Oral Pulse Rate 111 H 96 H Pulse Rate [Radial] 121 H Respiratory Rate 18 15 18 Blood Pressure 150/102 H 139/83 Blood Pressure [Right Arm] 155/104 H Blood Pressure Mean [Right Arm] 121 Blood Pressure Source [Right Arm] Automatic Cuff Blood Pressure Position [Right Arm] Sitting 02 Sat by Pulse Oximetry 98 99 99 Oxygen Delivery Method Room Air Room Air Room Air 04/12/24 15:30 04/12/24 16:00 Temperature Temperature Source Pulse Rate 106 H 95 H Pulse Rate [Radial] Respiratory Rate 16 18 Blood Pressure 136/80 140/79 Blood Pressure [Right Arm] Blood Pressure Mean [Right Arm] Blood Pressure Source [Right Arm] Blood Pressure Position [Right Arm] 02 Sat by Pulse Oximetry 98 98 Oxygen Delivery Method Room Air Room Air Lab Data Lab Results 04/12/24 14:16: WBC 8.1, RBC 4.49 L, Hgb 14.0 L, Hct 41.0 L, MCV 91.3, MCH 31.2, MCHC 34.1, RDW 12.3, Plt Count 175, MPV 9.8, Neut % (Auto) 55.2, Lymph % (Auto) 36.6, [place] % (Auto) 7.2, Eos % (Auto) 0.4, Baso % (Auto) 0.4, Neut # (Auto) 4.5, Lymph # (Auto) 3.0, [place] # (Auto) 0.6, Eos # (Auto) 0.0, Baso # (Auto) 0.0, PT 10.4, INR 0.94, APTT 31.5 H, Sodium 137, Potassium 3.8, Chloride 104, Carbon Dioxide 23, Anion Gap 13.8, BUN 23 H, Creatinine 0.80, Estimated Creat Clear 77, Estimated GFR 94, Est GFR ( Amer) 114, Glucose 151 H, Calcium 9.4, Total Bilirubin 0.4, AST 45, ALT 33, Alkaline Phosphatase 111, Troponin I < 0.01, Total Protein 7.2, Albumin 4.8, Globulin 2.4, Albumin/Globulin Ratio 2.0 H, Triglycerides 373 H, Cholesterol 214 H, LDL Cholesterol Direct 63.49 L, VLDL Cholesterol 75 H, HDL Cholesterol 84 H, Cholesterol/HDL Ratio 2.5, Plasma/Serum Alcohol < 10, HCV Ab YEFRI w/Rflx PCR Qn Negative, HIV Ag/Ab Combo Qual Negative 04/12/24 14:46: SARS-CoV-2 (PCR) Not detected, Influenza A Untype (PCR) Not detected, Influenza Type B (PCR) Not detected 04/12/24 15:25: Urine Color Yellow, Urine Appearance Clear, Urine pH 6.0, Ur Specific [place] <= 1.005, Urine Protein Negative, Urine Glucose (UA) Negative, Urine Ketones Negative, Urine Blood Negative, Urine Nitrate Negative, Urine Bilirubin Negative, Urine Urobilinogen 0.2, Ur Leukocyte Esterase Negative, Urine RBC None, Urine WBC None, Ur Squamous Epith Cells None, Urine Bacteria Trace, Urine Opiates Screen Negative, Urine Methadone Screen Negative, Ur Barbituates Screen Negative, Ur Phencyclidine Scrn Negative, Ur Amphetamines Screen Negative, U Benzodiazepines Scrn Negative, Urine Cocaine Screen Negative, U Marijuana (THC) Screen Negative 04/12/24 14:16 04/12/24 14:16 Orders (Tests/Meds): ED MEDICATIONS Generic Name Dose Route Start Last Admin Trade Name Freq PRN Reason Stop Dose Admin Aspirin 81 mg 04/13/24 09:00 Aspirin Ec 81mg Tablet PO 05/13/24 08:59 DAILY OZZY Clopidogrel Bisulfate 75 mg 04/13/24 09:00 Clopidogrel 75mg Tab PO 05/13/24 08:59 DAILY OZZY Sodium Chloride 10 ml 04/12/24 14:25 Sodium Chloride 0.9% 10ml Flush Syringe IV 05/12/24 14:24 NEEDED PRN Maintain IV Site Discontinued Medications Generic Name Dose Route Start Last Admin Trade Name Hanane PRN Reason Stop Dose Admin Acetaminophen 1,000 mg 04/12/24 14:25 04/12/24 14:41 Acetaminophen 500mg Tab PO 04/12/24 14:26 1,000 mg ONCE ONE Administration Aspirin 81 mg 04/12/24 15:25 04/12/24 15:31 Aspirin 81mg Chewable Tablet PO 04/12/24 15:26 81 mg ONCE ONE Administration Clopidogrel Bisulfate 75 mg 04/12/24 15:25 04/12/24 15:31 Clopidogrel 75mg Tab PO 04/12/24 15:26 75 mg ONCE ONE Administration Lactated Ringer's 1,000 mls @ 999 mls/hr 04/12/24 14:27 04/12/24 14:42 Lactated Ringer's 1000 Ml Bag IV 04/12/24 15:27 999 mls/hr .Q1H1M ONE Administration Iopamidol 80 ml 04/12/24 14:28 04/12/24 14:31 Iopamidol-370 (76%);100ml Bottle IV 04/12/24 14:29 80 ml ONCE ONE Administration Iopamidol 70 ml 04/12/24 14:29 04/12/24 14:39 Iopamidol-370 (76%);100ml Bottle IV 04/12/24 14:30 70 ml ONCE ONE Administration Ondansetron HCl 4 mg 04/12/24 14:25 04/12/24 14:41 Ondansetron 4mg/2ml Vial IV 04/12/24 14:26 4 mg ONCE ONE Administration Sodium Chloride 50 ml 04/12/24 14:28 04/12/24 14:31 0.9 % Sodium Chloride 50 Ml Vial IV 04/12/24 14:29 50 ml ONCE ONE Administration Sodium Chloride 10 ml 04/12/24 14:28 04/12/24 14:31 Sodium Chloride 0.9% 10ml Syr (Rad Only) IV 04/12/24 14:29 10 ml ONCE ONE Administration Sodium Chloride 10 ml 04/12/24 14:29 04/12/24 14:39 Sodium Chloride 0.9% 10ml Syr (Rad Only) IV 04/12/24 14:30 10 ml ONCE ONE Administration ORDERS Category Date Time Status CT angio chest PE protocol Stat Cat Scan 04/12/24 14:[address] angio head Stat Cat Scan 04/12/24 14:[address] angio neck Stat Cat Scan 04/12/24 14:[address] head/brain wo con Stat Cat Scan 04/12/24 14:25 Completed Activated Partial Thrombo Time Stat Lab 04/12/24 14:16 Completed Complete Blood Count Auto Diff AMLAB Lab 04/13/24 06:00 Ordered Complete Blood Count Auto Diff Stat Lab 04/12/24 14:16 Completed Comprehensive Metabolic Panel AMLAB Lab 04/13/24 06:00 Ordered Comprehensive Metabolic Panel Stat Lab 04/12/24 14:16 Completed Drug Screen,Urine Stat Lab 04/12/24 15:25 Completed Ethyl Alcohol Stat Lab 04/12/24 14:16 Completed HIV Combo Stat Lab 04/12/24 14:16 Completed Hemoglobin A1C Routine Lab 04/12/24 14:16 Received Hepatitis C Ab Qual. W/ RFX Stat Lab 04/12/24 14:16 Completed Lipid Panel Stat Lab 04/12/24 14:16 Completed Magnesium AMLAB Lab 04/13/24 06:00 Ordered Prothrombin Time INR Stat Lab 04/12/24 14:16 Completed Rapid PCR Covid and Flu A/B Stat Lab 04/12/24 14:46 Completed Troponin I Q3H Lab 04/12/24 17:30 Ordered Troponin I Q3H Lab 04/12/24 20:30 Ordered Troponin I Stat Lab 04/12/24 14:16 Completed Urinalysis and Microscopic Stat Lab 04/12/24 15:25 Completed ECG Data Tracing #1: I reviewed this ECG and interpreted as documented below: Independently interpreted by myself demonstrate sinus tachycardia with no acute ischemic ST changes. Some T wave depression in V2 and V3, but nothing reciprocal, low suspicion for ACS Medical Decision Narrative: In summary, this 73-year-old male presents to the emergency department today with diplopia, vision changes. On initial evaluation patient is afebrile, mildly tachycardic to 115, otherwise stable. On exam, patient is warm well-perfused with full pulses in all extremities. Pupils are equal and reactive. Notably, he has a bilateral hemianopsia on the right lower visual field. Also having active diplopia. NIH stroke scale of 2 given some word finding difficulties at times as well. Though otherwise is alert and oriented and no gross motor or sensory deficits on my examination. Heart is regular rate and lung sounds clear to auscultation bilaterally despite patient's endorsement of some shortness of breath, I suspect it may be secondary to anxiety, though will workup for ACS differential diagnosis includes but is not limited to CVA, ICH, carotid stenosis, vertigo, tension headache, electrolyte disturbance, ACS. Based on these concerns, I ordered CBC, CMP, CTA head and neck per stroke protocol, troponins, EKG. Patient received Plavix, aspirin per recommendations of [facility] stroke team for treatment. Labs personally reviewed demonstrate No leukocytosis, mild anemia with hemoglobin of 14 not acutely actionable. PT and PTT within normal limits. No significant electrolyte disturbance. Negative UA, negative UDS, negative COVID. XR personally interpreted demonstrates. CT imaging personally interpreted demonstrate no acute intracranial abnormality and this confirmed by the radiologist final read. I had an interactive discussion with [facility] stroke team, they reviewed the images and recommend aspirin and Plavix 81 mg and 75 mg respectively. They also recommend MR head without. They have excepted patient to their stroke floor, however he is currently on a wait list. They recommend calling back if anything changes in his clinical status. Given that patient is on the wait list, felt reasonable to consult the hospital team here. Hospitalist Dr. Croft graciously agrees to accept the patient to their service for observation until a bed becomes available there. Patient be transferred their service in hemodynamically stable condition with some residual diplopia and visual field deficit, but no other deficits on my exam.. Critical Care Critical Care Time Critical Care Time: Yes Attestation: On 04/12/24, the high probability of a clinically significant, sudden or life threatening deterioration of the following system(s) required my full and direct attention, intervention and personal management. The time I documented below is in addition to time spent performing reported procedures but includes the following listed in this critical care notation. Total Time Total Critical Care Time: 35
[2024-04-12 14:56] LABS: Troponin I < 0.01 ng/ml (0.00-0.034)
[2024-04-12 15:00] VITALS: BP 139/83; PULSE 96; RESP 18; O2SAT 99
--- NOTE | 2024-04-12 15:17 | PC.NURSE ---
CALLED [facility] PER FOR STROKE TEAM
--- NOTE | 2024-04-12 15:17 | PC.NURSE ---
SPEAKING WITH STROKE NAVIGATOR AT [facility]
--- NOTE | 2024-04-12 15:18 | PC.NURSE ---
KAYLEIGH OTERO SHARED IMAGES TO [facility] THROUGH THE [employer] [facility]
--- NOTE | 2024-04-12 15:20 | PC.NURSE ---
Pt given Urinal. Asked if there were 2 SDS signs on glass of nurses station. Told DR enrique having double vision
--- NOTE | 2024-04-12 15:25 | MR_ITS ---
PROCEDURE INFORMATION: Exam: MR Head Without Contrast Exam date and time: 04/12/2024 5:18 PM Age: 73 years old Clinical indication: Stroke-like symptoms; Visual disturbance; Additional info: C/f stroke, diplopia, visual field defecit TECHNIQUE: Imaging protocol: Magnetic resonance imaging of the head without contrast. COMPARISON: CT ANGIO HEAD 04/12/2024 2:31 PM FINDINGS: Major vascular flow voids at the skull base are preserved. No extra-axial fluid collection. No obstructive hydrocephalus. Mild age-related volume loss. Mild nonspecific white matter gliosis, probable chronic microvascular ischemia. No midline shift or significant intracranial mass effect. No cerebral edema or pathologic susceptibility. No diffusion restriction. Minimal paranasal sinus disease. No significant mastoid effusion. IMPRESSION: No acute intracranial abnormality.
[2024-04-12 15:29] LABS: HIV Combo NEGATIVE (Negative)
[2024-04-12 15:30] VITALS: BP 136/80; PULSE 106; RESP 16; O2SAT 98
[2024-04-12 15:30] LABS: Microscopic, Urine URINE MICROSCOPIC (MICROSCOPIC)
[2024-04-12] MEDS: ASPIRIN 81MG CHEWABLE TABLET 81 MG PO (15:31)
[2024-04-12] MEDS: CLOPIDOGREL 75MG TAB 75 MG PO (15:31)
[2024-04-12 15:34] LABS: Appearance,Urine CLEAR (Clear); Bilirubin,Urine Negative (Negative); Blood, Urine Negative (Negative); Color,Urine YELLOW (Yellow); Glucose,Urine (UA) Negative (Negative); Ketones,Urine Negative (Negative); Leukocyte Esterase,Urine Negative (Negative); Nitrate,Urine Negative (Negative); Protein,Urine Negative (Negative); Specific Gravity, Urine <= 1.005 (1.005-1.030); Urobilinogen,Urine 0.2 EU/dl (0.2)
[2024-04-12 15:37] LABS: Hepatitis C Ab Qual. W/ RFX NEGATIVE (Negative)
--- NOTE | 2024-04-12 15:38 | PC.NURSE ---
SPEAKING WITH HOSPITALIST AT THIS TIME ABOUT ADMISSION
--- NOTE | 2024-04-12 15:38 | PC.NURSE ---
on phone with hospitalist
--- NOTE | 2024-04-12 15:38 | PC.NURSE ---
MRI called to inform ER staff about timing of MRI for pt.
[2024-04-12 15:41] LABS: Bacteria,Urine Trace /lpf
--- NOTE | 2024-04-12 15:42 | PC.NURSE ---
HS aware of admission
[2024-04-12 15:45] LABS: Amphetamine/Metha Screen,Urine Negative ng/ml (<1000)
[2024-04-12 15:46] LABS: Barbiturates Screen,Urine Negative ng/ml (<200)
[2024-04-12 15:47] LABS: Benzodiazepines Screen,Urine Negative ng/ml (<200); Cannabinoid Screen,Urine Negative ng/ml (<50)
[2024-04-12 15:48] LABS: Cocaine Screen,Urine Negative ng/ml (<300); Methadone Screen,Urine Negative ng/ml (<300)
[2024-04-12 15:49] LABS: Opiate Screen,Urine Negative ng/ml (<300)
[2024-04-12 15:50] LABS: Phencyclidine Screen,Urine Negative ng/ml (<25)
[2024-04-12 16:00] VITALS: BP 140/79; BP 149/89; PULSE 95; PULSE 96; RESP 18; TEMP 36.9; O2SAT 98
--- NOTE | 2024-04-12 16:24 | PC.NURSE ---
Report called to KAYLEIGH Singh on Med Surg.
[2024-04-12 17:03] LABS: Hemoglobin A1C 5.6 % (4.0-6.0)
[2024-04-12 17:05] VITALS: BMI 27.9
--- NOTE | 2024-04-12 18:00 | P.HP_ITS ---
History of Present Illness *Admission Date: 04/12/24 *Reason for visit:: Double vision, facial numbness *History of present illness: Mr. Harden is a 73-year-old male with history of hypertension, cancer status post lobectomy and colon resection. History of stroke in the past with no resid ual deficits. COPD on just albuterol. He presented to the ER because of complaint of double vision that is gotten worse over the past 24 to 48 hours. Also had some intermittent numbness and weakness of the left side of his face that appears to have resolved at this time. Has had intermittent headache along with numbness. He reports intermittent left-sided facial numbness and right leg weakness, but he has not had any falls or trauma. Endorsed a headache this morning that resolved on its own. This morning around 6 AM, he noticed that while driving he began to have diplopia, seeing 2 of everything. Pulled over and allowed a family member to drive because he was concerned. Does not recall this happening before. Previously had cataract surgery but does not wear glasses and last eye exam was a year ago. Denies dizziness, syncope, acute trauma or change in medications. No nausea or vomiting. Stable on room air. Afebrile. No known sick contacts. CT obtained in the ER, negative. Labs fairly unremarkable. Given symptoms however [facility] was consulted for possible stroke. Recommended MRI had not accepted for transfer but no bed available at this time. Medicine consulted for admission and further management. Patient received aspirin in the ER. Upon arrival to the floor, patient is accompanied by his and son. They report as well that he has been somewhat confused such as stating that he was taking her granddaughter to school but she is not school-aged. Mild confusion beyond his normal baseline. Pleasant on exam. Hemodynamically stable. Numbness more or less resolved at this time. Double vision more prominent with objects that are further away from him. Denies coughing or choking or speech deficits/dysarthria [facility] Disclaimer: The information contained in this section may have been updated after the patient was seen, as this information can be updated by other users. Medical History (Updated 04/12/24 @ 22:13 by Veto Croft MD) Hypothyroid Cancer Hypertension Surgical History (Updated 04/12/24 @ 22:03 by Veto Croft MD) History of lobectomy of lung History of colectomy Social History Smoking Status: Never smoker second hand exposure: No alcohol intake: never current occupational status: retired Travel in the last 8 weeks: None household members: spouse housing: house current occupational exposures/hazards: No Have you lived/traveled outside [place] in past 30 days?: No Contact w/someone who lives/traveled outside [place] past 30 days?: No Exposure to someone with infectious disease in past 14 days?: No Do you have a fever (greater than 100.4 F or 38 C)?: No Have you tested positive for COVID-19: No Exposed to someone with COVID-19 in past 14 days?: No Do you have a sore throat?: No Do you have a cough?: No Do you have any weakness?: No Do you have any diarrhea?: No Are you experiencing any unusual bleeding?: No Do you have any muscle aches/pain?: No Do you have any abdominal pain?: No Are you experiencing loss of taste or smell?: No Other Medical History Have you received the Flu Vaccine for this season: Yes Have you received the Pneumonia Vaccine: No Review of Systems Review of Systems Review of systems (narrative): 14 point review of systems performed, pertinent positives and negatives as per HPI Meds Home Medications and Allergies Home Medications ?Medication ?Instructions ?Recorded ?Confirmed ?Type simvastatin 40 mg tablet 40 mg PO HS 03/17/17 04/13/24 History lisinopril 5 mg tablet 5 mg PO DAILY 04/28/17 04/12/24 History levothyroxine 112 mcg tablet 112 mcg PO DAILY 03/29/19 04/12/24 History aspirin 81 mg tablet,delayed 81 mg PO DAILY 30 days #30 tabs 04/13/24 Rx release clopidogrel 75 mg tablet 75 mg PO DAILY 21 days #21 tabs 04/13/24 Rx loratadine 10 mg tablet 10 mg PO DAILYP PRN Allergy 04/13/24 04/13/24 History Symptoms magnesium oxide 400 mg (241.3 mg 400 mg PO DAILY 04/13/24 04/13/24 History magnesium) tablet trazodone 50 mg tablet 50 mg PO HSP PRN Sleep 04/13/24 04/13/24 History New Prescriptions to Start Prescriptions: Veto Lewis clopidogrel Veto Croft Allergies Allergy/AdvReac Type Severity Reaction Status Date / Time No Known Allergies Allergy Verified 03/29/19 13:33 Exam Data for Last 24 hours Vital signs and Labs for Last 24 Hours: Temp Pulse Resp BP Pulse Ox O2 Del Method 98.5 F 96 H 18 149/89 H 98 Room Air 04/12/24 16:00 04/12/24 16:00 04/12/24 16:00 04/12/24 16:00 04/12/24 16:00 04/12/24 16:00 Laboratory Results - last 24 hr 04/12/24 14:16: WBC 8.1, RBC 4.49 L, Hgb 14.0 L, Hct 41.0 L, MCV 91.3, MCH 31.2, MCHC 34.1, RDW 12.3, Plt Count 175, MPV 9.8, Neut % (Auto) 55.2, Lymph % (Auto) 36.6, [place] % (Auto) 7.2, Eos % (Auto) 0.4, Baso % (Auto) 0.4, Neut # (Auto) 4.5, Lymph # (Auto) 3.0, [place] # (Auto) 0.6, Eos # (Auto) 0.0, Baso # (Auto) 0.0, PT 10.4, INR 0.94, APTT 31.5 H, Sodium 137, Potassium 3.8, Chloride 104, Carbon Dioxide 23, Anion Gap 13.8, BUN 23 H, Creatinine 0.80, Estimated Creat Clear 77, Estimated GFR 94, Est GFR ( Amer) 114, Glucose 151 H, Hemoglobin A1c 5.6, Calcium 9.4, Total Bilirubin 0.4, AST 45, ALT 33, Alkaline Phosphatase 111, Troponin I < 0.01, Total Protein 7.2, Albumin 4.8, Globulin 2.4, Albumin/Globulin Ratio 2.0 H, Triglycerides 373 H, Cholesterol 214 H, LDL Cholesterol Direct 63.49 L, VLDL Cholesterol 75 H, HDL Cholesterol 84 H, Cholesterol/HDL Ratio 2.5, Plasma/Serum Alcohol < 10, HCV Ab YEFRI w/Rflx PCR Qn Negative, HIV Ag/Ab Combo Qual Negative 04/12/24 14:46: SARS-CoV-2 (PCR) Not detected, Influenza A Untype (PCR) Not detected, Influenza Type B (PCR) Not detected 04/12/24 15:25: Urine Color Yellow, Urine Appearance Clear, Urine pH 6.0, Ur Specific [place] <= 1.005, Urine Protein Negative, Urine Glucose (UA) Negative, Urine Ketones Negative, Urine Blood Negative, Urine Nitrate Negative, Urine Bilirubin Negative, Urine Urobilinogen 0.2, Ur Leukocyte Esterase Negative, Urine RBC None, Urine WBC None, Ur Squamous Epith Cells None, Urine Bacteria Trace, Urine Opiates Screen Negative, Urine Methadone Screen Negative, Ur Barbituates Screen Negative, Ur Phencyclidine Scrn Negative, Ur Amphetamines Screen Negative, U Benzodiazepines Scrn Negative, Urine Cocaine Screen Negative, U Marijuana (THC) Screen Negative I & O for Last 24 hours: Intake & Output 04/09/24 04/10/24 04/11/24 04/12/24 23:59 23:59 23:59 23:59 Weight 85.548 kg Constitutional Constitutional: no acute distress, average body habitus and cooperative *Routine HEENT Exam Head: Present normocephalic and atraumatic Eye: Present EOMI and PERRL ENT: Present mucous membranes moist *Routine Neck Exam Neck: Present supple; Absent lymphadenopathy *Routine Respiratory Exam Respiratory: Present CTA bilaterally; Absent rhonchi, wheezes or crackles *Routine Cardiovascular Exam Cardiovascular: Present RRR *Routine Abdominal Exam Abdominal: Present soft and normoactive bowel sounds; Absent tenderness Comments: scar on abdomen *Routine Rectal Exam Rectal:: deferred *Routine Genitalia Exam Genitalia:: deferred *Routine Extremities Exam Extremities: Absent cyanosis, clubbing or edema *Routine Skin Exam Skin: Present warm; Absent rash *Routine Neurological Exam Neurological: Present alert, oriented X3, CN II-XII intact, sensory deficit (left side of face with slight variation in sensation to light touch compared to right), moving all extremities and normal speech; Absent motor deficit or facial asymmetry Comments: diplopia Routine Psychiatric Exam Psychiatric: Present normal affect Assessment and Plan *Assessment and plan (1) TIA (transient ischemic attack): Status: Acute Category: Medical Code(s): G45.9 - Transient cerebral ischemic attack, unspecified (2) COPD (chronic obstructive pulmonary disease): Status: Acute Qualifiers: COPD type: COPD with acute exacerbation Qualified Code(s): J44.1 - Chronic obstructive pulmonary disease with (acute) exacerbation Category: Medical Code(s): J44.9 - Chronic obstructive pulmonary disease, unspecified (3) Hypertension: Status: Chronic Category: Medical Code(s): I10 - Essential (primary) hypertension (4) Double vision: Status: Acute Category: Medical Code(s): H53.2 - Diplopia (5) Cancer: Problem Comment: colon and lung Status: Resolved Category: Medical Code(s): C80.1 - Malignant (primary) neoplasm, unspecified (6) Hypothyroid: Status: Chronic Category: Medical Code(s): E03.9 - Hypothyroidism, unspecified Plan 73-year-old male who presents with 2 days of double vision and transient left- sided facial numbness. CT in the ER did not show CVA. Given his symptoms however and persistent double vision, medicine consulted for admission. Discussed case with ER physician, request admission for MRI and monitoring. Patient has been accepted to [facility] but is on a waiting list. I agreed to admit for further management. Initiated on DAPT therapy. Serial neuroexams. Problems addressed as follows: Double vision TIA versus CVA -Patient having 1 to 2 days of double vision and transient left-sided facial numbness. -Per my review of CT, no focal abnormalities or concern for stroke. MRI obtained, formal read still pending. Per my review of imaging however does not show abnormal bleeding on imaging concerning for large stroke on MRI -Neuroconsulted from [facility], currently on wait list. -Differential includes stroke, TIA, complex migraine, medication side effect among other things. -Initiated on aspirin 81 mg daily and Plavix 75 mg daily for 21 days. Recommend continuing aspirin 81 mg daily thereafter -Will allow for permissive hypertension. Holding home lisinopril. -Labs unremarkable with normal white count of 8.1, hemoglobin 14. Electrolytes normal with sodium 137, potassium 3.8. Kidney function normal with BUN 23, creatinine 0.8. Glucose 151. No history of diabetes. -A1c ordered for the morning -Repeat CBC, CMP, magnesium ordered for the morning - Lipid panel with triglycerides of 373, LDL 63, HDL 84 Hypothyroid: TSH 1.2. Well-controlled. Continue levothyroxine 112 mcg daily Continue donepezil 10 mg daily memory Continue Lexapro 10 mg daily for mood Continue simvastatin 40 mg daily for hyperlipidemia Holding home blood pressure regimen to allow for permissive hypertension with suspected TIA/CVA. Will hold lisinopril 5 mg daily Full code Regular diet Lovenox 40 mg subcu daily
[2024-04-12 19:18] LABS: Troponin I < 0.01 ng/ml (0.00-0.034)
[2024-04-12 20:00] VITALS: BP 139/83; PULSE 94; RESP 18; TEMP 36.7; O2SAT 98
[2024-04-12 21:20] LABS: Troponin I < 0.01 ng/ml (0.00-0.034)
[2024-04-12 21:45] LABS: Thyroid Stimulating Hormone 1.23 uIU/mL (0.465-4.68)
[2024-04-13] MEDS: ACETAMINOPHEN 325MG TAB 650 MG PO (03:12)
--- NOTE | 2024-04-13 03:34 | PC.NURSE ---
pt continues to have c/o double vision, no other symptoms verbalized. vss. c/o carranza, treated per mar with relief. pt currently sleeping. no needs at this time.
[2024-04-13 04:00] VITALS: BP 130/77; PULSE 73; RESP 18; TEMP 36.5; O2SAT 98; BMI 27.0
[2024-04-13 06:09] LABS: Basophils % 0.2 % (0.1-2.0); Eosinophils % 0.5 % (0.1-12.0); Hematocrit 37.9 % (42.0-52.0); Hemoglobin 13.2 g/dL (14.1-18.0); Lymphocytes # 2.8 K/mm3 (0.7-4.5); Lymphocytes % 46.9 % (10-50); Mean Corpuscular HGB Conc 34.8 g/dL (31.8-35.4); Mean Corpuscular Hemoglobin 31.7 pg (27.0-31.2); Mean Corpuscular Volume 91.1 fl (80-94); Mean Platelet Volume 9.9 fl (7.4-10.4); Monocytes # 0.6 K/mm3 (0.1-1.0); Monocytes % 9.1 % (1.7-9.3); Neutrophils # 2.6 K/mm3 (1.8-7.8); Neutrophils % 43.1 % (37.0-80.0); Platelet Count 140 K/mm3 (142-424); Red Blood Count 4.16 M/mm3 (4.60-6.20); Red Cell Distribution Width 12.3 % (11.5-17.5)
[2024-04-13 06:13] LABS: Albumin Level 4.1 g/dl (3.5-5.0); Chloride 105 mmol/L (98-107); Potassium 3.9 mmoL/L (3.5-5.1); Sodium 137 mmol/L (136-145)
[2024-04-13 06:16] LABS: Alanine Aminotransferase 30 U/L (12-78); Albumin/Globulin Ratio 1.8 (1.1-1.8); Alkaline Phosphatase 95 U/L (38-126); Anion Gap 9.9 mEq/L (5-15); Aspartate Amino Transferase 38 U/L (17-59); Bilirubin,Total 0.5 mg/dl (0.2-1.3); Blood Urea Nitrogen 14 mg/dl (9-20); Carbon Dioxide 26 mmol/L (22.0-30.0); Creatinine Clearance Estimated 76 mL/min (50-200); Estimated Glomerular Filt Rate 94 ml/min (>60); GFR (African American) 114 ML/MIN (>60); Globulin 2.3 g/dL (1.3-3.2); Glucose 92 mg/dl (74-100); Total Protein,Serum 6.4 g/dl (6.3-8.2)
[2024-04-13 06:17] LABS: Calcium 9.2 mg/dl (8.4-10.2); Magnesium 1.4 mg/dl (1.6-2.3)
[2024-04-13 08:00] VITALS: BP 151/87; PULSE 88; PULSE 90; RESP 16; TEMP 36.5; O2SAT 98
[2024-04-13 08:22] LABS: Hemoglobin A1C 5.6 % (4.0-6.0)
[2024-04-13] MEDS: CLOPIDOGREL 75MG TAB 75 MG PO (09:07)
[2024-04-13] MEDS: LEVOTHYROXINE 112MCG (0.112MG) TAB 112 MCG PO (09:07)
[2024-04-13] MEDS: ASPIRIN EC 81MG TABLET 81 MG PO (09:07)
[2024-04-13] MEDS: CITALOPRAM 20MG TABLET 20 MG PO (09:08)
[2024-04-13] MEDS: ENOXAPARIN 40MG/0.4ML SYRINGE 40 MG SUBCUT (09:08)
[2024-04-13] MEDS: MAGNESIUM SULFATE IN WATER 2 GM/50 ML PIGGYBACK IV ×2 (09:11→13:03)
--- NOTE | 2024-04-13 09:24 | HMH.PHAINT1 ---
Pharmacy Intervention Comments: HOME MEDICATION LIST VERIFIED USING LIST FROM OUTPATIENT PHARMACY AND PT INTERVIEW
--- NOTE | 2024-04-13 10:06 | HMH.PTEV ---
Physical Therapy Evaluation Rehab PT IP Evaluation Start: 04/12/24 15:42 Freq: ONCE Status: Active Protocol: Document 04/13/24 10:01 SRINI (Rec: 04/13/24 10:05 SRINI [id number]) Subjective/History History History 73-year-old male with history of hypertension, cancer status post lobectomy and colon resection. History of stroke in the past with no residual deficits. COPD on just albuterol. He presented to the ER because of complaint of double vision that is gotten worse over the past 24 to 48 hours. Subjective Subjective Pt reports he lives with his daughter. Pt is normally IND with all mobility. Pt is a regular at the [employer] gym and remains very active usually. Pt reports I started seeing 2 of everything . New diagnosis of cancer in past 12 No months? Rehab PT IP Eval Objective Appearance Patient Behavior Appropriate,Cooperative Patient Orientation Person,Place Difficulty following instructions none Speech Pattern Clear Ambulation Patient Able to Ambulate Yes Ambulation Observation IP General Gait Pattern Observation No Deviations/Normal Ambulation Distance (feet) 40 Ambulation Assistive Device None Ambulation Ability Independent Balance Ability to Arise Able, w/o using arms Sitting Balance Steady, safe Standing Balance Narrow stance w/o support Dynamic Sitting Balance Ability Normal Dynamic Standing Balance Ability Normal Transfers Bed Transfer Ability Independent Sit to Stand Bed Transfer Ability Independent Rehab PT IP prob,goals,plan Problems Date of Evaluation: 04/13/24 Rehab Potential Rehab Potential Innapropriate for Skilled Therapy Discharge Plan PT Discharge Plan Pt not appropriate for skilled acute care PT d/t pt being IND with mobility. Eval Complexity Eval Charge Codes 34805 - Moderate Complexity PHYSICIAN CERTIFICATION: I certify the specified therapy services for Fabriziomike Harden are required, authorized, and reviewed every 30 days.
--- NOTE | 2024-04-13 10:51 | HMH.OTEV ---
OT Inpatient Evaluation Rehab OT IP Evaluation Start: 04/12/24 15:42 Freq: ONCE Status: Active Protocol: Document 04/13/24 10:01 [facility] (Rec: 04/13/24 10:51 [facility] [id number]) Rehab OT IP Assessment Subjective History Pt oriented x 3 on arrival. Pt agreeable to engage in therapy evaluation. Pt admitted on 04/12/24 due to double vision and facial numbness. History and physical: Mr. Leonardo is a 73-year-old male with history of hypertension, cancer status post lobectomy and colon resection. History of stroke in the past with no residual deficits. COPD on just albuterol. He presented to the ER because of complaint of double vision that is gotten worse over the past 24 to 48 hours. Also had some intermittent numbness and weakness of the left side of his face that appears to have resolved at this time. Has had intermittent headache along with numbness. He reports intermittent left- sided facial numbness and right leg weakness, but he has not had any falls or trauma. Endorsed a headache this morning that resolved on its own. This morning around 6 AM , he noticed that while driving he began to have diplopia, seeing 2 of everything. Pulled over and allowed a family member to drive because he was concerned . Does not recall this happening before. Previously had cataract surgery but does not wear glasses and last eye exam was a year ago. Denies dizziness, syncope, acute trauma or change in medications. No nausea or vomiting. Stable on room air. Afebrile. No known sick contacts. CT obtained in the ER, negative. Labs fairly unremarkable. Given symptoms however [facility] was consulted for possible stroke. Recommended MRI had not accepted for transfer but no bed available at this time. Medicine consulted for admission and further management. Patient received aspirin in the ER. Upon arrival to the floor, patient is accompanied by his and son. They report as well that he has been somewhat confused such as stating that he was taking her granddaughter to school but she is not school-aged. Mild confusion beyond his normal baseline. Pleasant on exam. Hemodynamically stable. Numbness more or less resolved at this time. Double vision more prominent with objects that are further away from him. Denies coughing or choking or speech deficits/ dysarthria Subjective It started while I was driving. Prior to being in the hospital , pt lived with his daughter. Pt claims he is normally independent with all ADLs and IADLs. Pt is usually very active. Pt still drives. Pt does not require any type of AE during functional transfers . Objective Patient Orientation Person,Place,Birthday Right Upper Extremity Gross ROM WNL Left Upper Extremity Gross ROM WNL Bed Mobility bed mobility-scooting,bed mobility - supine/sit Assist Level Supervision/Stand by Transfer Training Sit/Stand Transfer Assist Level Supervision/Stand by Chair Transfer Ability Supervision/Stand by Chair Transfer Technique Sit to/from Ambulatory Chair Transfer Assistive Devices None Lower Body Dressing Ability Standby Assistance Performing Toilet Hygiene Ability Standby Assistance Overall Commode/Toilet Transfer Ability Standby Assistance Commode/Toilet Transfer Technique Sit to/from Ambulatory Rehab OT IP prob,goals,plan Problems Date of Evaluation: 04/13/24 Rehab Potential Rehab Potential Innapropriate for Skilled Therapy Discharge Plan OT Discharge Plan Pt appears to be at his baseline with functional transfers and ADL independence . Pt is safe to discharge home with family once he is medically stable per physician . Eval Complexity Eval Charge Codes 36634 - Low Complexity PHYSICIAN CERTIFICATION: I certify the specified therapy services for Fabrizio Harden are required, authorized, and reviewed every 30 days.
[2024-04-13 12:00] VITALS: BP 150/92; PULSE 74; RESP 18; TEMP 36.6; O2SAT 99
--- NOTE | 2024-04-13 15:11 | P.DS_ITS ---
General Admission date:: 04/12/24 Discharge date: 04/13/24 HPI HPI HPI: Mr. Leonardo is a 73-year-old male with history of hypertension, cancer status post lobectomy and colon resection. History of stroke in the past with no residual deficits. COPD on just albuterol. He presented to the ER because of complaint of double vision that is gotten worse over the past 24 to 48 hours. Also had some intermittent numbness and weakness of the left side of his face that appears to have resolved at this time. Has had intermittent headache along with numbness. He reports intermittent left-sided facial numbness and right leg weakness, but he has not had any falls or trauma. Endorsed a headache this morning that resolved on its own. This morning around 6 AM, he noticed that while driving he began to have diplopia, seeing 2 of everything. Pulled over and allowed a family member to drive because he was concerned. Does not recall this happening before. Previously had cataract surgery but does not wear glasse s and last eye exam was a year ago. Denies dizziness, syncope, acute trauma or change in medications. No nausea or vomiting. Stable on room air. Afebrile. No known sick contacts. CT obtained in the ER, negative. Labs fairly unremarkable. Given symptoms however [facility] was consulted for possible stroke. Recommended MRI had not accepted for transfer but no bed available at this time. Medicine consulted for admission and further management. Patient received aspirin in the ER. Upon arrival to the floor, patient is accompanied by his and son. They report as well that he has been somewhat confused such as stating that he was taking her granddaughter to school but she is not school-aged. Mild confusion beyond his normal baseline. Pleasant on exam. Hemodynamically stable. Numbness more or less resolved at this time. Double vision more prominent with objects that are further away from him. Denies coughing or choking or speech deficits/dysarthria Hospital Course Hospital Course Hospital Course: 73-year-old male who presents with 2 days of double vision and transient left- sided facial numbness. CT in the ER did not show CVA. Given his symptoms however and persistent double vision, medicine consulted for admission. Discussed case with ER physician, request admission for MRI and monitoring. Patient has been accepted to [facility] but is on a waiting list. I agreed to admit for further management. Initiated on DAPT therapy. Serial neuroexams. Did well overnight. Double vision persisted in the morning but no other neurologic deficits. Discussed case with stroke navigator at [facility]. As patient is on medical management, had no findings on MRI, and symptoms are somewhat improved aside from double vision, would benefit from close outpatient follow-up. Plan to discharge patient home with close follow-up in 3 days (on Tuesday) with outpatient stroke clinic at [facility] for further management and evaluation. Problems addressed as follows: Double vision TIA versus CVA -Patient having 1 to 2 days of double vision and transient left-sided facial numbness. Per my review of CT, no focal abnormalities or concern for stroke. MRI obtained, no evidence of stroke, edema, ischemic or hemorrhagic abnormalities. Neurology at [facility] was consulted. Patient was placed on a wait list. He was initiated on aspirin and Plavix. Allow for permissive hypertension. Neuroexams performed showing no new symptoms. Diplopia persisted. After much discussion with [facility] stroke navigator, there is no other acute intervention needed at this time. Patient needs close follow-up with neurostroke clinic in the outpatient setting. Appointment made for this coming Tuesday. Discharged in stable condition. Patient independently mobile with no focal weakness or unilateral symptoms. Will continue aspirin and Plavix for 21 days. Hold lisinopril at this time. Counseled to only take his lisinopril if his blood pressure elevated above 180. A1c normal at 5.6. Lipid panel with triglycerides of 373, LDL 63, HDL 84. Continue home simvastatin 40 mg daily. Hypothyroid: TSH 1.2. Well-controlled. Continue levothyroxine 112 mcg daily Continue donepezil 10 mg daily memory Continue Lexapro 10 mg daily for mood Total time spent on discharge 32 minutes in counseling, documentation, chart review, and direct care with patient. Exam Data for Last 24 hours Vital signs and Labs for Last 24 Hours: Temp Pulse Resp BP Pulse Ox O2 Del Method 97.8 F 74 18 150/92 H 99 Room Air 04/13/24 12:00 04/13/24 12:00 04/13/24 12:00 04/13/24 12:00 04/13/24 12:04/13/24 13:00 Laboratory Results - last 24 hr 04/12/24 14:16: Hemoglobin A1c 5.6, HCV Ab YEFRI w/Rflx PCR Qn Negative, HIV Ag/Ab Combo Qual Negative 04/12/24 14:46: SARS-CoV-2 (PCR) Not detected, Influenza A Untype (PCR) Not detected, Influenza Type B (PCR) Not detected 04/12/24 15:25: Urine Color Yellow, Urine Appearance Clear, Urine pH 6.0, Ur Specific [place] <= 1.005, Urine Protein Negative, Urine Glucose (UA) Negative, Urine Ketones Negative, Urine Blood Negative, Urine Nitrate Negative, Urine Bilirubin Negative, Urine Urobilinogen 0.2, Ur Leukocyte Esterase Negative, Urine RBC None, Urine WBC None, Ur Squamous Epith Cells None, Urine Bacteria Trace, Urine Opiates Screen Negative, Urine Methadone Screen Negative, Ur Barbituates Screen Negative, Ur Phencyclidine Scrn Negative, Ur Amphetamines Screen Negative, U Benzodiazepines Scrn Negative, Urine Cocaine Screen Negative, U Marijuana (THC) Screen Negative 04/12/24 18:42: Troponin I < 0.01 04/12/24 20:27: Troponin I < 0.01, TSH 1.23 04/13/24 04:26: WBC 6.0 D, RBC 4.16 L, Hgb 13.2 L, Hct 37.9 L, MCV 91.1, MCH 31.7 H, MCHC 34.8, RDW 12.3, Plt Count 140 L, MPV 9.9, Neut % (Auto) 43.1, Lymph % (Auto) 46.9, Callahan % (Auto) 9.1, Eos % (Auto) 0.5, Baso % (Auto) 0.2, Neut # (Auto) 2.6, Lymph # (Auto) 2.8, Callahan # (Auto) 0.6, Eos # (Auto) 0.0, Baso # (Auto) 0.0, Sodium 137, Potassium 3.9, Chloride 105, Carbon Dioxide 26, Anion Gap 9.9, BUN 14 D, Creatinine 0.80, Estimated Creat Clear 76, Estimated GFR 94, Est GFR ( Amer) 114, Glucose 92 D, Hemoglobin A1c 5.6, Calcium 9.2, Magnesium 1.4 L, Total Bilirubin 0.5, AST 38, ALT 30, Alkaline Phosphatase 95, Total Protein 6.4, Albumin 4.1 D, Globulin 2.3, Albumin/Globulin Ratio 1.8 I & O for Last 24 hours: Intake & Output 04/10/24 04/11/24 04/12/24 04/13/24 23:59 23:59 23:59 23:59 Intake Total 590 / 590 Output Total 0 / 0 0 / 0 Balance 0 / 0 590 / 590 Weight 85.548 kg 82.69 kg Constitutional Constitutional: no acute distress, average body habitus and cooperative *Routine HEENT Exam Head: Present normocephalic Eye: Present EOMI and PERRL ENT: Present mucous membranes moist *Routine Neck Exam Neck: Present supple; Absent lymphadenopathy *Routine Respiratory Exam Respiratory: Present CTA bilaterally; Absent rhonchi, wheezes or crackles *Routine Cardiovascular Exam Cardiovascular: Present RRR *Routine Abdominal Exam Abdominal: Present soft and normoactive bowel sounds; Absent tenderness *Routine Rectal Exam Patient deferred: visual exam *Routine Exam Patient deferred: penile exam *Routine Extremities Exam Extremities: Absent cyanosis, clubbing or edema *Routine Skin Exam Skin: Present warm; Absent rash *Routine Neurological Exam Neurological: Present alert, oriented X3, CN II-XII intact and moving all extremities; Absent sensory deficit, motor deficit or altered mental status Comments: Double vision on exam Results Data Completed and Pending Labs on day of discharge: Labs from last 24 hours 04/13/24 04/12/24 04/12/24 04:26 20:27 18:42 WBC 6.0 D RBC 4.16 L Hgb 13.2 L Hct 37.9 L MCV 91.1 MCH 31.7 H MCHC 34.8 RDW 12.3 Plt Count 140 L MPV 9.9 Neut % (Auto) 43.1 Lymph % (Auto) 46.9 Callahan % (Auto) 9.1 Eos % (Auto) 0.5 Baso % (Auto) 0.2 Neut # (Auto) 2.6 Lymph # (Auto) 2.8 Callahan # (Auto) 0.6 Eos # (Auto) 0.0 Baso # (Auto) 0.0 Sodium 137 Potassium 3.9 Chloride 105 Carbon Dioxide 26 Anion Gap 9.9 BUN 14 D Creatinine 0.80 Estimated Creat Clear 76 Estimated GFR 94 Est GFR ( Amer) 114 Glucose 92 D Hemoglobin A1c 5.6 Calcium 9.2 Magnesium 1.4 L Total Bilirubin 0.5 AST 38 ALT 30 Alkaline Phosphatase 95 Troponin I < 0.01 < 0.01 Total Protein 6.4 Albumin 4.1 D Globulin 2.3 Albumin/Globulin Ratio 1.8 TSH 1.23 Urine Color Urine Appearance Urine pH Ur Specific [place] Urine Protein Urine Glucose (UA) Urine Ketones Urine Blood Urine Nitrate Urine Bilirubin Urine Urobilinogen Ur Leukocyte Esterase Urine RBC Urine WBC Ur Squamous Epith Cells Urine Bacteria Urine Opiates Screen Urine Methadone Screen Ur Barbituates Screen Ur Phencyclidine Scrn Ur Amphetamines Screen U Benzodiazepines Scrn Urine Cocaine Screen U Marijuana (THC) Screen SARS-CoV-2 (PCR) HCV Ab YEFRI w/Rflx PCR Qn HIV Ag/Ab Combo Qual Influenza A Untype (PCR) Influenza Type B (PCR) 04/12/24 04/12/24 04/12/24 15:25 14:46 14:16 WBC RBC Hgb Hct MCV MCH MCHC RDW Plt Count MPV Neut % (Auto) Lymph % (Auto) Callahan % (Auto) Eos % (Auto) Baso % (Auto) Neut # (Auto) Lymph # (Auto) Callahan # (Auto) Eos # (Auto) Baso # (Auto) Sodium Potassium Chloride Carbon Dioxide Anion Gap BUN Creatinine Estimated Creat Clear Estimated GFR Est GFR ( Amer) Glucose Hemoglobin A1c 5.6 Calcium Magnesium Total Bilirubin AST ALT Alkaline Phosphatase Troponin I Total Protein Albumin Globulin Albumin/Globulin Ratio TSH Urine Color Yellow Urine Appearance Clear Urine pH 6.0 Ur Specific [place] <= 1.005 Urine Protein Negative Urine Glucose (UA) Negative Urine Ketones Negative Urine Blood Negative Urine Nitrate Negative Urine Bilirubin Negative Urine Urobilinogen 0.2 Ur Leukocyte Esterase Negative Urine RBC None Urine WBC None Ur Squamous Epith Cells None Urine Bacteria Trace Urine Opiates Screen Negative Urine Methadone Screen Negative Ur Barbituates Screen Negative Ur Phencyclidine Scrn Negative Ur Amphetamines Screen Negative U Benzodiazepines Scrn Negative Urine Cocaine Screen Negative U Marijuana (THC) Screen Negative SARS-CoV-2 (PCR) Not detected HCV Ab YEFRI w/Rflx PCR Qn Negative HIV Ag/Ab Combo Qual Negative Influenza A Untype (PCR) Not detected Influenza Type B (PCR) Not detected DS: Diagnosis Discharge Diagnosis (1) TIA (transient ischemic attack): Status: Acute Code(s): G45.9 - Transient cerebral ischemic attack, unspecified (2) COPD (chronic obstructive pulmonary disease): Status: Acute Code(s): J44.9 - Chronic obstructive pulmonary disease, unspecified Qualifiers: COPD type: COPD with acute exacerbation Qualified Code(s): J44.1 - Chronic obstructive pulmonary disease with (acute) exacerbation (3) Hypertension: Status: Chronic Code(s): I10 - Essential (primary) hypertension (4) Double vision: Status: Acute Code(s): H53.2 - Diplopia (5) Cancer: Status: Resolved Code(s): C80.1 - Malignant (primary) neoplasm, unspecified Problem details: colon and lung (6) Hypothyroid: Status: Chronic Code(s): E03.9 - Hypothyroidism, unspecified Meds Home Medications and Allergies Home Medications ?Medication ?Instructions ?Recorded ?Confirmed ?Type simvastatin 40 mg tablet 40 mg PO HS 03/17/17 04/13/24 History lisinopril 5 mg tablet 5 mg PO DAILY 04/28/17 04/12/24 History levothyroxine 112 mcg tablet 112 mcg PO DAILY 03/29/19 04/12/24 History aspirin 81 mg tablet,delayed 81 mg PO DAILY 30 days #30 tabs 04/13/24 Rx release clopidogrel 75 mg tablet 75 mg PO DAILY 21 days #21 tabs 04/13/24 Rx loratadine 10 mg tablet 10 mg PO DAILYP PRN Allergy 04/13/24 04/13/24 History Symptoms magnesium oxide 400 mg (241.3 mg 400 mg PO DAILY 04/13/24 04/13/24 History magnesium) tablet trazodone 50 mg tablet 50 mg PO HSP PRN Sleep 04/13/24 04/13/24 History New Prescriptions to Start Prescriptions: aspirin Veto Croft clopidogrel Veto Croft Allergies Allergy/AdvReac Type Severity Reaction Status Date / Time No Known Allergies Allergy Verified 03/29/19 13:33 Discharge Plan Disposition Patient Disposition: Home, Self-Care Condition: Fair Follow up Plan Follow up with: Gianluca Carlson MD [Primary Care Provider] - 04/23/24 2:30 pm Prescriptions/Medication Reconciliation: New clopidogrel 75 mg Tablet 75 mg PO DAILY 21 Days Qty: 21 0RF aspirin 81 mg Tablet,Delayed Release (Dr/Ec) 81 mg PO DAILY 30 Days Qty: 30 0RF Continued levothyroxine 112 mcg tablet 112 mcg PO DAILY Patient Comments: TAKE 1 TABLET BY MOUTH ONCE DAILY simvastatin 40 mg tablet 40 mg PO HS trazodone 50 mg tablet 50 mg PO HSP PRN (Reason: Sleep) Patient Comments: TAKE 1 TABLET BY MOUTH EVERY DAY magnesium oxide 400 mg (241.3 mg magnesium) tablet 400 mg PO DAILY Patient Comments: TAKE 1 TABLET BY MOUTH DAILY loratadine 10 mg tablet 10 mg PO DAILYP PRN (Reason: Allergy Symptoms) Patient Comments: TAKE 1 TABLET BY MOUTH ONCE DAILY Held lisinopril 5 MG tablet 5 mg PO DAILY Hold Instructions: pending Neuro follow-up Problem Reconciliation Problems Reviewed?: Yes Patient Discharge Instructions ACTIVITY: Continue current activity DIET: continue same diet Patient Instructions: DI for Transient Ischemic Attack, DI for Double Vision Print Language: Iraqi Providers Primary Care Provider: Gianluca Carlson Admit Provider: Veto Croft Attending Provider: Veto Croft
--- NOTE | 2024-04-16 10:53 | SW/DCPLANNER ---
Spoke with daughter on the phone. Daughter stated that they are at the stroke center. Alonso mccartney
== END 2024-04-13 16:28 | disposition home or self-care (01) ==
LOC: ER 16:12 → 2ND 17:41
PROVIDERS: Admitting Provider Internal Medicine Adolescent Medicine; Emergency Provider Emergency Medicine; PCP Internal Medicine; Visit Provider Internal Medicine Adolescent Medicine
DX: R41.0 Disorientation, unspecified (principal); H53.2 Diplopia; I10 Essential (primary) hypertension; R20.0 Anesthesia of skin; J44.9 Chronic obstructive pulmonary disease, unspecified; E03.9 Hypothyroidism, unspecified; Z79.890 Hormone replacement therapy; Z86.73 Personal history of transient ischemic attack (TIA), and cerebral infarction without residual deficits; Z79.899 Other long term (current) drug therapy; Z85.038 Personal history of other malignant neoplasm of large intestine; Z85.118 Personal history of other malignant neoplasm of bronchus and lung
CPT/HCPCS: 36415; 70450; 70496; 70498; 70551; 71275; 80053; 80061; 80307; 80320; 81001; 83036; 83735; 84443; 84484; 85025; 85610; 85730; 86803; 87389; 87636; 93005; 97162; 97165; 99291; G0378; G0480; J1650; J2405; J3475; J7120; Q9967

== ENCOUNTER 2024-10-31 09:38 | Outpatient (RCR) | payer MEDICARE, SELFPAY | END 2024-11-19 08:00 | disposition home or self-care (01) | LOC: CR 09:38 | PROVIDERS: Visit Provider Emergency Medicine | DX: I25.10 Atherosclerotic heart disease of native coronary artery without angina pectoris (principal) | CPT/HCPCS: 93798 ==

== ENCOUNTER 2025-02-25 06:48 | Day surgery (SDC) | payer MEDICARE, SELFPAY ==
--- NOTE | 2025-02-19 16:48 | EXP.HP ---
History of Present Illness *Admission Date: 02/25/25 *History of present illness: Mr. Harden is a 74-year-old gentleman who is here for diagnostic EGD and screening/surveillance sigmoidoscopy. The patient has had a notable history of cancer and has had appendiceal cancer, advanced adenomatous colon polyps with colon cancer and subtotal colectomy (followed by Gabino Garcia MD), lung cancer (with prior right lung lobectomy) and bone cancer. 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 More recently, the patient has had heartburn and reflux with noncardiac chest pain and unexplained dyspnea. He has seen the reclamation kettle tender and was having some tachycardia and is followed with shelter monitor (implantable loop recorder) and is going to cardiac rehab. He is on metoprolol. He was told that this may be a result of his GI tract with vagal symptoms. He also saw the goring cutter and states that this testing was normal. The patient does have some belching and intermittent dysphagia. 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 He reports no bloating. His last EGD was 10 or 15 years ago. The patient also has a personal history of advanced adenomatous colon polyps. His last surveillance sigmoidoscopy was with Gabino Garcia MD. He is due for surveillance. He did have a stroke or TIA 7 months ago and did have diplopia which is beginning to resolve. The patient does have a history of carotid artery stenosis. The examination is deemed medically necessary for diagnostic EGD and screening/surveillance sigmoidoscopy. The patient has been seen, interviewed and examined prior to the procedure by both myself and the anesthesia provider. [facility] Disclaimer: The information contained in this section may have been updated after the patient was seen, as this information can be updated by other users. Medical History History of TIA (transient ischemic attack) History of pancreatitis Sphincter of Oddi dysfunction Hyperlipidemia Diabetes History of colon polyps History of bone cancer Shingles Hypothyroid Cancer colon and lung Hypertension Surgical History History of loop recorder History of surgery on wrist History of cholecystectomy History of appendectomy History of lobectomy of lung History of colectomy Family History Grandfather Colon cancer Social History (Updated 02/25/25 @ 08:07 by Leon Richard) Smoking Status: Never smoker second hand exposure: No alcohol intake: never substance use type: denies use current occupational status: retired and disabled Travel in the last 8 weeks?: None household members: spouse housing: house current occupational exposures/hazards: No Have you lived/traveled outside [place] in past 30 days?: No Contact w/someone who lives/traveled outside US past 30 days?: No Exposure to someone with infectious disease in past 14 days?: No Do you have a fever (greater than 100.4 F or 38 C)?: No Have you tested positive for COVID-19?: No Exposed to someone with COVID-19 in past 14 days?: No Do you have a sore throat?: No Do you have a cough?: No Do you have any weakness?: No Are you experiencing any nausea/vomitting?: No Do you have any diarrhea?: No Are you experiencing any unusual bleeding?: No Do you have any muscle aches/pain?: No Do you have any abdominal pain?: No Are you experiencing loss of taste or smell?: No Other Medical History Have you received the Flu Vaccine for this season: No Have you received the Pneumonia Vaccine: No Review of Systems Review of Systems Review of systems (narrative): Negative *Cardiovascular Comments: Negative *Gastrointestinal Comments: Negative *Genitourinary Comments: Negative *Musculoskeletal Comments: Negative *Neurologic Comments: Negative Meds Home Medications and Allergies Home Medications ?Medication ?Instructions ?Recorded ?Confirmed ?Type simvastatin 40 mg tablet 40 mg PO HS 03/17/17 01/15/25 History lisinopril 5 mg tablet 5 mg PO DAILY 04/28/17 01/15/25 History Held on 04/13/24. Instructions: pending Neuro follow-up levothyroxine 112 mcg tablet 112 mcg PO DAILY 03/29/19 01/15/25 History aspirin 81 mg tablet,delayed 81 mg PO DAILY 30 days #30 tabs 04/13/24 01/15/25 Rx release loratadine 10 mg tablet 10 mg PO DAILYP PRN Allergy 04/13/24 01/15/25 History Symptoms magnesium oxide 400 mg (241.3 mg 400 mg PO DAILY 04/13/24 01/15/25 History magnesium) tablet trazodone 50 mg tablet 50 mg PO HSP PRN Sleep 04/13/24 01/15/25 History albuterol sulfate 90 mcg/actuation 90 puff inhalation NEEDED PRN 01/15/25 01/15/25 History aerosol inhaler Asthma buspirone 10 mg tablet 10 mg PO BID 01/15/25 01/15/25 History ezetimibe 10 mg tablet 10 mg PO DAILY 01/15/25 01/15/25 History metformin 500 mg tablet 500 mg PO DAILY 01/15/25 01/15/25 History metoprolol tartrate 50 mg tablet 50 mg PO BID 01/15/25 01/15/25 History promethazine 25 mg tablet 25 mg PO TID PRN Nausea 01/15/25 01/15/25 History tadalafil 10 mg tablet (Cialis) 10 mg PO DAILY PRN Sexual Activity 01/15/25 01/15/25 History New Prescriptions to Start Prescriptions: Allergies Allergy/AdvReac Type Severity Reaction Status Date / Time No Known Allergies Allergy Verified 02/25/25 08:00 Exam *Routine HEENT Exam Head: Present normocephalic Eye: Present EOMI and PERRL ENT: Present mucous membranes moist *Routine Neck Exam Neck: Present supple *Routine Respiratory Exam Respiratory: Present CTA bilaterally *Routine Cardiovascular Exam Cardiovascular: Present RRR *Routine Abdominal Exam Abdominal: Present soft and normoactive bowel sounds; Absent tenderness *Routine Rectal Exam Rectal:: deferred *Routine Genitalia Exam Genitalia:: deferred *Routine Extremities Exam Extremities: Absent cyanosis, clubbing or edema *Routine Skin Exam Skin: Present warm; Absent rash *Routine Neurological Exam Neurological: Present alert and oriented X3 Assessment and Plan *Assessment and plan (1) GERD (gastroesophageal reflux disease): Status: Acute Category: Medical Code(s): K21.9 - Gastro-esophageal reflux disease without esophagitis (2) Dysphagia: Status: Acute Category: Medical Code(s): R13.10 - Dysphagia, unspecified (3) Belching: Status: Acute Category: Medical Code(s): R14.2 - Eructation (4) Non-cardiac chest pain: Status: Acute Category: Medical Code(s): R07.89 - Other chest pain (5) Personal history of adenomatous and serrated colon polyps: Status: Acute Category: Medical Code(s): Z86.0101 - Personal history of adenomatous and serrated colon polyps (6) History of malignant neoplasm of appendix: Status: Acute Category: Medical Code(s): Z85.09 - Personal history of malignant neoplasm of other digestive organs (7) Screening for colon cancer: Status: Acute Category: Medical Code(s): Z12.11 - Encounter for screening for malignant neoplasm of colon Plan A/P: 1. Heartburn/GERD with belching, dysphagia and noncardiac chest pain for EGD and personal history of adenomatous colon polyps, personal history of appendiceal neoplasm for colonoscopy is the preprocedural diagnosis. The patient will be anesthetized/sedated using MAC sedation. The patient has been seen and examined. Cardiac and lung assessment prior to the examination is stable. Proceed with planned diagnostic EGD and screening/surveillance sigmoidoscopy.
--- NOTE | 2025-02-25 07:04 | P.PCN_ITS ---
[facility] Procedure Note Date: 02/25/25 Time: 09:33 Procedure Note:: Upper Endoscopy Procedure Report: Esophagogastroduodenoscopy with cold biopsies and TTS balloon dilation Endoscopost: Richie Diaz II, MD Referring Physician: Brennan Carlson MD, [address] [place] [address]., [place] [address] Date of Procedure: February 25, 2025 Equipment: Olympus GIF-1100 standard upper endoscope Sedation: MAC sedation Indications: Mr. Harden is a 74-year-old gentleman who is here for diagnostic EGD and screening/surveillance sigmoidoscopy. The patient has had a notable history of cancer and has had appendiceal cancer, advanced adenomatous colon polyps with colon cancer and subtotal colectomy (followed by Gabino Garcia MD), lung cancer (with prior right lung lobectomy) and bone cancer. 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 More recently, the patient has had heartburn and reflux with noncardiac chest pain and unexplained dyspnea. He has seen the facilities director and was having some tachycardia and is followed with school lunch monitor (implantable loop recorder) and is going to cardiac rehab. He is on metoprolol. He was told that this may be a result of his GI tract with vagal symptoms. He also saw the exhauster and states that this testing was normal. The patient does have some belching and intermittent dysphagia. 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 He reports no bloating. His last EGD was 10 or 15 years ago. The patient also has a personal history of advanced adenomatous colon polyps. His last surveillance sigmoidoscopy was with Gabino Garcia MD. He is due for surveillance. He did have a stroke or TIA 7 months ago and did have diplopia which is beginning to resolve. The patient does have a history of carotid artery stenosis. The examination is deemed medically necessary for diagnostic EGD and screening/surveillance sigmoidoscopy. Procedure: Prior to the procedure, a history and physical exam was performed, and patient's medications and allergies were reviewed. The risks, benefits and alternatives of the sedation and procedure were discussed with the patient. All questions were answered and informed consent was obtained. The patient was brought to the procedure room. Patient identification and proposed procedure were verified by the physician and the nurse. The patient was placed in a left lateral decubitus position and the scope was passed under direct vision. Throughout the procedure, the patient's blood pressure, pulse, and oxygen saturations were monitored continuously. The upper GI endoscopy was accomplished without difficulty. The patient tolerated the procedure well. Findings: The scope was passed directly into the upper esophagus and advanced to the third portion of the duodenum. The post bulbar duodenum, ampulla and duodenal bulb were normal with normal mucosa and conniventes. 2 cold biopsies were taken from the second portion of the duodenum for the disaccharidase assay. The scope was withdrawn through a normal duodenal bulb and pylorus into the stomach. There was bile reflux with mild linear reactive gastropathy of the antrum. There was mild chronic gastritis of the body and fundus of the stomach. Upon retroflexion there was a very small sliding 1 to 2 cm hiatal hernia. Cold biopsies were taken along the lesser curvature to rule out H. pylori. The scope was then withdrawn into the esophagus. There was a serrated Z-line and a cold biopsy was taken at the GE junction. There was a distal esophageal ring/Schatzki's ring that was dilated to 60 Thai/20 mm with a TTS hydrostatic balloon with shattering of the Schatzki's ring. There were tertiary contractions and evidence of mild esophageal dysmotility. There was no evidence of reflux esophagitis or Kat's. The remainder of the esophageal mucosa was normal. Impression: 1. Distal esophageal Schatzki's ring status post dilation to 20 mm (from 13 to 14 mm diameter) 2. Nonerosive GERD with mild esophageal dysmotility and small 1 to 2 cm hiatal hernia 3. Mild linear reactive gastropathy with bile reflux and mild chronic gastritis Plan: I will follow-up the biopsies and disaccharidase assay. I will discuss the findings with the patient and family. I will proceed with surveillance sigmoidoscopy.
--- NOTE | 2025-02-25 07:04 | P.PCN_ITS ---
[facility] Procedure Note Date: 02/25/25 Time: 09:47 Procedure Note:: Flexible Sigmoidoscopy Procedure Report: Sigmoidoscopy with cold snare polypectomy Endoscopist: Richie Diaz II, MD Referring physician: Brennan Carlson MD, [address] [place] [address]., [place] [address] Date of Procedure: February 25, 2025 Equipment: Olympus 180 variable stiffness pediatric colonoscope Sedation: MAC sedation Indication: Mr. Harden is a 74-year-old gentleman who is here for diagnostic EGD and screening/surveillance sigmoidoscopy. The patient has had a notable history of cancer and has had appendiceal cancer, advanced adenomatous colon polyps with colon cancer and subtotal colectomy (followed by Gabino Garcia MD), lung cancer (with prior right lung lobectomy) and bone cancer. 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 More recently, the patient has had heartburn and reflux with noncardiac chest pain and unexplained dyspnea. He has seen the oral surgery assistant and was having some tachycardia and is followed with quality assurance monitor (implantable loop recorder) and is going to cardiac rehab. He is on metoprolol. He was told that this may be a result of his GI tract with vagal symptoms. He also saw the airport operations duty manager and states that this testing was normal. The patient does have some belching and intermittent dysphagia. 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 He reports no bloating. His last EGD was 10 or 15 years ago. The patient also has a personal history of advanced adenomatous colon polyps. His last surveillance sigmoidoscopy was with Gabino Garcia MD. He is due for surveillance. He did have a stroke or TIA 7 months ago and did have diplopia which is beginning to resolve. The patient does have a history of carotid artery stenosis. The examination is deemed medically necessary for diagnostic EGD and screening/surveillance sigmoidoscopy. Procedure: Prior to the procedure, a history and physical exam was performed, and patient's medications and allergies were reviewed. The risks, benefits and alternatives of the sedation and procedure were discussed with the patient. All questions were answered and informed consent was obtained. The patient was brought to the procedure room. Patient identification and proposed procedure were verified by the physician and the nurse. The patient was placed in a left lateral decubitus position and the scope was passed under direct vision. Throughout the procedure, the patient's blood pressure, pulse, and oxygen saturations were monitored continuously. The colonoscopy was accomplished without difficulty. The patient tolerated the procedure well. Findings: On digital rectal examination, there was normal rectal tone. The prostate was 2+, smooth, soft, symmetric without nodules. The scope was then inserted through the anal canal into the rectum and advanced to the ileocolonic anastomosis. The scope was advanced a short distance into the ileum which was normal. The scope was then withdrawn into the colon. The patient had a prior subtotal colectomy and there was approximately 18 to 20 cm of remaining rectosigmoid and rectum. There were 13 diminutive colon polyps identified in the rectosigmoid and rectum that all ranged in size between 2 and 4 mm and were all removed via cold snare polypectomy. Impression: 1. Diminutive rectosigmoid/rectal polyps x 13 Plan: I will follow-up the polyp histology and discuss surveillance interval based upon whether these are all adenomatous polyps.
[2025-02-25 08:06] VITALS: BP 121/79; PULSE 66; RESP 18; TEMP 36.4; O2SAT 98; BMI 26.6
[2025-02-25 08:12] LABS: POC Glucose,Bedside 87 gm/dL (70-110)
[2025-02-25] MEDS: LACTATED RINGERS 1000ML 1,000 ML 50 ML IV (08:15)
--- NOTE | 2025-02-25 09:35 | EXP.ANES.CKL ---
[facility] Disclaimer: The information contained in this section may have been updated after the patient was seen, as this information can be updated by other users. Medical History History of TIA (transient ischemic attack) History of pancreatitis Sphincter of Oddi dysfunction Hyperlipidemia Diabetes History of colon polyps History of bone cancer Shingles Hypothyroid Cancer Hypertension Surgical History History of loop recorder History of surgery on wrist History of cholecystectomy History of appendectomy History of lobectomy of lung History of colectomy Family History Grandfather Colon cancer Social History Smoking Status: Never smoker second hand exposure: No alcohol intake: never substance use type: denies use current occupational status: retired and disabled Travel in the last 8 weeks?: None household members: spouse housing: house current occupational exposures/hazards: No Have you lived/traveled outside [place] in past 30 days?: No Contact w/someone who lives/traveled outside [place] past 30 days?: No Exposure to someone with infectious disease in past 14 days?: No Do you have a fever (greater than 100.4 F or 38 C)?: No Have you tested positive for COVID-19?: No Exposed to someone with COVID-19 in past 14 days?: No Do you have a sore throat?: No Do you have a cough?: No Do you have any weakness?: No Are you experiencing any nausea/vomitting?: No Do you have any diarrhea?: No Are you experiencing any unusual bleeding?: No Do you have any muscle aches/pain?: No Do you have any abdominal pain?: No Are you experiencing loss of taste or smell?: No [facility] Anesthesia Checklist Patient Identification Patient Identification: Arm Band and Verbal (Name & ) Structural Data Admitted From: Home Planned Operative Procedure/s: EGD and flex sig Consent for Planned Operative Procedure(s) Verified: Yes Verified Documents: Surgical Consent and History and Physical NPO Status Verified Time NPO: 00:00 Additional verifications Anesthesia Reactions: No Previous Colonoscopy: Yes Airway Assessment Mallampati Score:: Class II Dentition: Good Dentition Neurological Assessment Level of Consciousness: Awake, Alert and Appropriate Anesthesia Plan Anesthesia Risk discussed: Yes Anesthesia Plan: Verified ASA Class: IV Anesthesia Type: MAC
[2025-02-25 09:51] VITALS: BP 101/64; PULSE 80; RESP 18; TEMP 36.1; O2SAT 97
[2025-02-25 10:01] VITALS: BP 104/57; PULSE 71; O2SAT 98
[2025-02-25 10:11] VITALS: BP 102/63; PULSE 73; O2SAT 98
[2025-02-25 10:21] VITALS: BP 122/73; PULSE 70; O2SAT 99
[2025-03-11 09:17] LABS: Interpretation Notes (.); Lactase 27.44 (>/= 14.0); Maltase 186.92 (>/= 110.0); Palatinase 13.2 (>/= 8.5); Reference Notes (.); Sucrase 49.51 (>/= 25.0)
== END 2025-02-25 10:21 | disposition home or self-care (01) ==
PROVIDERS: PCP Internal Medicine; Visit Provider Internal Medicine Gastroenterology
PROC: 0DJ08ZZ Inspection of Upper Intestinal Tract, Via Natural or Artificial Opening Endoscopic (ICD-10-PCS; CPT 43239; principal; 2025-02-25 09:30)
PROC: 0DJD8ZZ Inspection of Lower Intestinal Tract, Via Natural or Artificial Opening Endoscopic (ICD-10-PCS; CPT 45330; 2025-02-25 09:30)
DX: Z12.11 Encounter for screening for malignant neoplasm of colon (principal); K22.2 Esophageal obstruction; K21.9 Gastro-esophageal reflux disease without esophagitis; R13.10 Dysphagia, unspecified; R07.89 Other chest pain; Z86.0101 Personal history of adenomatous and serrated colon polyps; Z85.09 Personal history of malignant neoplasm of other digestive organs; Z85.038 Personal history of other malignant neoplasm of large intestine; Z85.830 Personal history of malignant neoplasm of bone; K63.5 Polyp of colon; K51.40 Inflammatory polyps of colon without complications; K44.9 Diaphragmatic hernia without obstruction or gangrene; K31.89 Other diseases of stomach and duodenum; E11.9 Type 2 diabetes mellitus without complications; Z79.84 Long term (current) use of oral hypoglycemic drugs
CPT/HCPCS: 43239; 43249; 45385; 82657; 82962; 88305; C1726; J2003; J2704; J7120